=== PATIENT | male | born 1960 | race Caucasian/White ===

== ENCOUNTER 2023-09-19 22:52 | Emergency (ER) | payer MEDICARE, OTHER, SELFPAY ==
[2023-09-19 22:52] VITALS: BMI 25.0
[2023-09-19 22:54] VITALS: BP 118/69
--- NOTE | 2023-09-19 22:58 | ED.GENMED ---
History of Present Illness
<Zheng Salas Russell, DO - Last Filed: 09/20/23 05:17>
General
Chief Complaint: Abdominal Pain
Time Seen by Provider: 09/19/23 22:57
Travel History
Have you had any contact with someone who has COVID-19?: No
Do you have any symptoms of coronavirus? Fever > 100 degrees, chills, cough, shortness of breath, sore throat, loss of taste or smell, muscle aches, or headache?: No
History of Present Illness
History of Present Illness:
HPI: The patient presents with abdominal pain. He had ERCP yesterday and reports that the biliary stent was exchanged. 5 days ago it was noted that he had jaundice when he was at [facility] for an exchange of his drainage catheter (has chronic
intra-abdominal abscess). He had not had biliary stent exchanged in a long time. His Tmax was about 101 Fahrenheit. He has a general uncomfortable feeling and was discharged from [facility] yesterday and the pain has been worsening.
EXAM:
GENERAL: Appears uncomfortable
HEENT: Moist oral mucosa, scleral icterus
CARDIOVASCULAR: No murmurs, normal heart rate, regular rhythm, No chest wall tenderness
PULMONARY: No respiratory distress, breath sounds are clear and equal
ABDOMEN: Mild diffuse abdominal tenderness, surgical scar/wound noted in the right upper quadrant, drainage catheter draining purulent material noted which patient states is chronic currently has about 40 mL in the bag
NEUROLOGIC: Good strength all extremities, no coordination deficits
PSYCHIATRIC: Appropriate mental status, normal insight and judgement
EXTREMITIES: Nontender, no edema, moves all extremities equally
SKIN: Appears jaundiced
TIME OF INITIAL ENCOUNTER: 11:05 PM
NUMBER AND COMPLEXITY OF PROBLEMS ADDRESSED AT THE ENCOUNTER
� Chronic conditions affecting care: Metastatic colon cancer, surgical wound infection, PE
� Acute Exacerbation and/or Progression of Chronic Illness: This is an acute problem
� Differential Diagnosis includes: Post ERCP pancreatitis, CBD stone, worsening metastatic disease, viral hepatitis unlikely, ERCP complication
AMOUNT AND/OR COMPLEXITY OF DATA TO BE REVIEWED AND ANALYZED
� I performed an independent evaluation of and my interpretation is:
EKG:
CT: I personally viewed CT imaging�radiologist is concerned of the tip of the common bile duct stent that appears to perforate the anterior wall of the duodenum and terminate in the adjacent fat, large gas fluid collection noted
as well
X-rays:
Laboratory Studies: Alk phos is 732, white count 12, total bili 10.3, direct is 8.1, lipase is normal at 58
Other: Ultrasound imaging shows stent in the common bile duct now measuring 11 mm and on ultrasound 04/23/2020 it was 9 mm, cirrhotic liver with trace perihepatic ascites was noted, visualized portion of the pancreas was normal.
� Review of other/old records: I reviewed records, the patient was started on Eliquis for diagnosis of pulmonary embolism in February 2023�she was not hypoxic at that time. The patient had ERCP done in September 2020 for management of
CBD stone
� Clinical information was obtained by an independent historian: I spoke to the at bedside
� Prescriptions/Medications Considered but not given:
� Further testing considered but not performed:
RISK OF COMPLICATIONS AND/OR MORBIDITY OR MORTALITY OF PATIENT MANAGEMENT
� Social determinants of health affecting care: Lives at home, also has care at [facility]
� Discussion with other providers: I discussed case with Dr. Hawthorne at [facility] initially, I then ultimately spoke to Dr. Clay who accepts to his service at [facility] at around 3:30 AM. [facility] transfer center says that the bed
would likely not be available until late morning.
� Escalation of care including admission/observation vs risk of discharge considered: The patient appears uncomfortable and require something from for pain�will give Dilaudid. On reassessment at 1:30 AM, the patient reports some
improvement however the etiology of this somewhat unclear. We are trying to contact the doctors at [facility] above. CT imaging shows concern for perforation of the anterior wall of the duodenum from the CBD stent. The patient states that he missed
his dose of Augmentin�will give a dose of Unasyn. He was also concerned about not taking omeprazole�will give Protonix.
Past History
<Zheng Wells, DO - Last Filed: 09/20/23 05:17>
Past History
ED Past Medical History: Cancer (Colon cancer 2017)
ED Past Surgical History: Cholecystectomy, Orthopedic and Other (Sigmoid resection, port placement,liver resection)
Social History
Tobacco: Non-smoker
Alcohol: Occasional
Drug: None
Personal:
Living: with family
Employment: Employed
Family History
Family History: Other (Noncontributory)
Phy Exam
<Zheng Wells, DO - Last Filed: 09/20/23 05:17>
Physical Exam
Physical Exam:
See HPI
Course
<Zheng Wells, DO - Last Filed: 09/20/23 05:17>
Orders/Labs/Results
Orders:
Orders
09/19/23 22:59
0.9% Sodium Chloride 1000 ml [Nss] 1,000 ml IV BOLUS
09/19/23 23:10
HYDROmorphone [Dilaudid] 1 mg IV NOW STA
Ondansetron Injectable [Zofran] 4 mg IV NOW STA
09/19/23 23:22
Basic Metabolic Panel Urgent
Complete Blood Count/With Diff Urgent
LFT [[id number]] Urgent
Lipase Urgent
09/20/23 01:52
CT Abd/pelvis W Iv Cont Urgent
Comment:
Reason For Exam: abnormal LFTs, eval for biliary ductal dilatation
09/20/23 03:01
HYDROmorphone [Dilaudid] 1 mg IV NOW STA
09/20/23 04:05
Pantoprazole [Protonix IV] 40 mg IV NOW STA
09/20/23 04:11
Ampicillin/Sulbactam 3 G [Unasyn] 3 gm 0.9% Sodium Chloride 100 ml [Nss] 100 ml IV NOW
09/20/23 11:38
0.9% Sodium Chloride 1000 ml [Nss] 1,000 ml IV BOLUS
HYDROmorphone [Dilaudid] 1 mg IV NOW STA
09/20/23 11:45
Ampicillin/Sulbactam 3 G [Unasyn] 3 gm 0.9% Sodium Chloride 100 ml [Nss] 100 ml IV NOW
09/20/23 11:49
Ondansetron Injectable [Zofran] 4 mg .ROUTE .STK-MED ONE
09/20/23 11:50
Ondansetron Injectable [Zofran] 4 mg IV NOW STA
09/20/23 23:10
US Abdomen Complete/Upper Urgent
Reason For Exam: abd pain; jaundice; recent biliary stent exchange
Abnormal Lab Results
09/19/23
23:22
WBC 12.0 H 10^3/uL
(4.8-10.8)
RBC 3.37 L 10^6/uL
(4.70-6.10)
Hgb 8.2 L g/dL
(13.0-18.0)
Hct 25.1 L %
(39.0-52.0)
MCV 74.5 L fL
(80.0-94.0)
MCH 24.3 L pg
(27.0-31.0)
MCHC 32.7 L g/dL
(33.0-37.0)
RDW 17.3 H %
(11.5-14.5)
Abs Immat Gran (auto) 0.1 H 10^3/uL
(0-0.05)
Absolute Neuts (auto) 10.1 H 10^3/uL
(1.4-6.5)
Absolute Lymphs (auto) 0.7 L 10^3/uL
(1.2-3.4)
Absolute Monos (auto) 1.0 H 10^3/uL
(0.1-0.6)
Immature Gran % 0.6 H %
(0-0.5)
Neutrophils % 84.3 H %
(42.2-75.2)
Lymphocytes % 5.9 L %
(20.5-51.1)
Sodium 129 L mmol/L
(135-145)
Creatinine 0.6 L mg/dL
(0.7-1.3)
Glucose 108 H mg/dl
(70-99)
Total Bilirubin 10.3 H mg/dl
(0.2-1.3)
Direct Bilirubin 8.1 H mg/dl
(0.0-0.4)
ALT 93 H U/L
(0-50)
Alkaline Phosphatase 732 H U/L
(38-126)
Albumin 2.8 L g/dl
(3.5-5.0)
09/19/23 23:22
09/19/23 23:22
Vital Signs
Initial and Last Documented VS:
Initial Vital Signs
Temp Pulse Resp BP Pulse Ox
98.3 F 98 22 118/69 98
09/19/23 22:54 09/19/23 22:54 09/19/23 22:54 09/19/23 22:54 09/19/23 22:54
Last Documented Vital Signs
Temp Pulse Resp BP Pulse Ox
101.6 F H 90 16 126/77 98
09/20/23 10:11 09/20/23 11:53 09/20/23 10:11 09/20/23 11:53 09/20/23 10:11
Harveylt;Blade D. Goodroad, DO - Last Filed: 09/20/23 12:51>
Orders/Labs/Results
Orders:
Orders
09/19/23 22:59
0.9% Sodium Chloride 1000 ml [Nss] 1,000 ml IV BOLUS
09/19/23 23:10
HYDROmorphone [Dilaudid] 1 mg IV NOW STA
Ondansetron Injectable [Zofran] 4 mg IV NOW STA
09/19/23 23:22
Basic Metabolic Panel Urgent
Complete Blood Count/With Diff Urgent
LFT [[id number]] Urgent
Lipase Urgent
09/20/23 01:52
CT Abd/pelvis W Iv Cont Urgent
Comment:
Reason For Exam: abnormal LFTs, eval for biliary ductal dilatation
09/20/23 03:01
HYDROmorphone [Dilaudid] 1 mg IV NOW STA
09/20/23 04:05
Pantoprazole [Protonix IV] 40 mg IV NOW STA
09/20/23 04:11
Ampicillin/Sulbactam 3 G [Unasyn] 3 gm 0.9% Sodium Chloride 100 ml [Nss] 100 ml IV NOW
09/20/23 11:38
0.9% Sodium Chloride 1000 ml [Nss] 1,000 ml IV BOLUS
HYDROmorphone [Dilaudid] 1 mg IV NOW STA
09/20/23 11:45
Ampicillin/Sulbactam 3 G [Unasyn] 3 gm 0.9% Sodium Chloride 100 ml [Nss] 100 ml IV NOW
09/20/23 11:49
Ondansetron Injectable [Zofran] 4 mg .ROUTE .STK-MED ONE
09/20/23 11:50
Ondansetron Injectable [Zofran] 4 mg IV NOW STA
09/20/23 23:10
US Abdomen Complete/Upper Urgent
Reason For Exam: abd pain; jaundice; recent biliary stent exchange
Abnormal Lab Results
09/19/23
23:22
WBC 12.0 H 10^3/uL
(4.8-10.8)
RBC 3.37 L 10^6/uL
(4.70-6.10)
Hgb 8.2 L g/dL
(13.0-18.0)
Hct 25.1 L %
(39.0-52.0)
MCV 74.5 L fL
(80.0-94.0)
MCH 24.3 L pg
(27.0-31.0)
MCHC 32.7 L g/dL
(33.0-37.0)
RDW 17.3 H %
(11.5-14.5)
Abs Immat Gran (auto) 0.1 H 10^3/uL
(0-0.05)
Absolute Neuts (auto) 10.1 H 10^3/uL
(1.4-6.5)
Absolute Lymphs (auto) 0.7 L 10^3/uL
(1.2-3.4)
Absolute Monos (auto) 1.0 H 10^3/uL
(0.1-0.6)
Immature Gran % 0.6 H %
(0-0.5)
Neutrophils % 84.3 H %
(42.2-75.2)
Lymphocytes % 5.9 L %
(20.5-51.1)
Sodium 129 L mmol/L
(135-145)
Creatinine 0.6 L mg/dL
(0.7-1.3)
Glucose 108 H mg/dl
(70-99)
Total Bilirubin 10.3 H mg/dl
(0.2-1.3)
Direct Bilirubin 8.1 H mg/dl
(0.0-0.4)
ALT 93 H U/L
(0-50)
Alkaline Phosphatase 732 H U/L
(38-126)
Albumin 2.8 L g/dl
(3.5-5.0)
09/19/23 23:22
09/19/23 23:22
Vital Signs
Initial and Last Documented VS:
Initial Vital Signs
Temp Pulse Resp BP Pulse Ox
98.3 F 98 22 118/69 98
09/19/23 22:54 09/19/23 22:54 09/19/23 22:54 09/19/23 22:54 09/19/23 22:54
Last Documented Vital Signs
Temp Pulse Resp BP Pulse Ox
101.6 F H 90 16 126/77 98
09/20/23 10:11 09/20/23 11:53 09/20/23 10:11 09/20/23 11:53 09/20/23 10:11
<Zheng Wells, DO - Last Filed: 09/20/23 05:17>
*Critical Care Note
Total Time (30-74mins, 75-104mins- exclusive of procedures): Not Applicable
<Blade Turpin, DO - Last Filed: 09/20/23 12:51>
Update Note
Update Note:
Call placed to [facility], and discussed with on-call surgeon. They continue to await bed. Attempted admission to to hospitalist with general surgery consult, general surgery, Dr. Murguia declines admission, not comfortable admitting patient here.
Recommends patient stay in ED until transfer available. Unclear when bed will be available. D/w Dr. Perez, hospitalist, not comfortable admitting patient here.
Repeat dose of unasyn, IV fluids, dilaudid and zofran given.
ED Attending Note
<Zheng Wells, DO - Last Filed: 09/20/23 05:17>
-
Portions of this chart may have been created with voice recognition software.� Occasional wrong word or��sound alike� substitutions may have occurred due to the inherent limitations of voice recognition software.
Discharge Plan
Departure
Patient Disposition: Acute Care Hospital
Date of Disposition: 09/20/23
Time of Disposition: 03:59
Patient with high blood pressure during this ER visit?: Yes
Discharge Problem:
Jaundice
Prescriptions:
No Action
omeprazole 20 mg Tablet,Delayed Release (/Ec)
20 mg PO DAILY
amoxicillin-pot clavulanate 875-125 mg Tablet
1 tab PO BID
Patient Comments:
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
sennosides [senna] 8.6 mg Tablet
8.6 mg PO BID
Referrals:
Teresita Donohue PA-C [Family Provider] -
Hospital Transfer
Other hospital: [facility]
I certify that the patient requires transfer: Yes
Discussed case with accepting physician: Dr. Ramirez
Reason for transfer: continuity of care PCP
Interventions
Interventions:
*Risk Screen - Suicide Last Done: 09/19/23 23:37
*General Assessment Last Done: 09/19/23 23:37
*Neglect/Abuse Screening Last Done: 09/19/23 23:37
*ED COVID-19 Vaccine History Last Done: 09/19/23 23:37
WR-Tmqpcu-Tsisqxwrem Assessment Last Done: 09/19/23 23:37
Discharge Date and Time
Print Language: THAI
[2023-09-19 23:27] VITALS: BP 123/73
[2023-09-19 23:27] LABS: % Basophils 0.2 % (0-2); % Eosinophils 0.8 % (0-6); % Immature Granulocytes 0.6 % (0-0.5); % Lymphocytes 5.9 % (20.5-51.1); % Monocytes 8.2 % (1.7-9.3); % Neutrophils 84.3 % (42.2-75.2); Absolute Eosinophils 0.1 10^3/uL (0-0.7); Absolute Immature Granulocytes 0.1 10^3/uL (0-0.05); Absolute Lymphocytes 0.7 10^3/uL (1.2-3.4); Absolute Neutrophils 10.1 10^3/uL (1.4-6.5); Hematocrit 25.1 % (39.0-52.0); Hemoglobin 8.2 g/dL (13.0-18.0); Mean Corp Hgb Conc. 32.7 g/dL (33.0-37.0); Mean Corpuscular Hgb 24.3 pg (27.0-31.0); Mean Corpuscular Volume 74.5 fL (80.0-94.0); Nucleated Red Blood Cells % 0 % (-); Platelet Count 183 10^3/uL (130-400); Red Blood Cell Count 3.37 10^6/uL (4.70-6.10); Red Cell Dist. Width 17.3 % (11.5-14.5)
[2023-09-19] MEDS: ZOFRAN 4 MG IV (23:30)
[2023-09-19] MEDS: NSS 1000 IV (23:30)
[2023-09-19] MEDS: DILAUDID 1 MG IV (23:32)
[2023-09-19 23:46] LABS: ALT (SGPT) 93 U/L (0-50); AST (SGOT) 57 U/L (17-59); Albumin 2.8 g/dl (3.5-5.0); Alkaline Phosphatase 732 U/L (38-126); Blood Urea Nitrogen 11 mg/dl (9-20); Calcium 8.6 mg/dl (8.4-10.2); Carbon Dioxide 29 mmol/L (22-30); Chloride 99 mmol/L (98-107); Direct Bilirubin 8.1 mg/dl (0.0-0.4); Estimated Creatinine Clearance > 125 ml/min; Glucose 108 mg/dl (70-99); Lipase 58 U/L (23-300); Potassium 4.5 mmol/L (3.5-5.1); Sodium 129 mmol/L (135-145); Total Bilirubin 10.3 mg/dl (0.2-1.3); Total Protein 6.9 g/dl (6.3-8.2); eGFR > 60.00
[2023-09-20] VITALS (12 sets, daily range): BP systolic 109–133; BP diastolic 67–81
[2023-09-20] MEDS: DILAUDID 1 MG IV ×2 (03:08→11:44)
[2023-09-20] MEDS: PROTONIX IV 40 MG IV (04:30)
[2023-09-20] MEDS: UNASYN IV ×2 (04:52→12:00)
[2023-09-20] MEDS: NSS 1000 IV (11:48)
[2023-09-20] MEDS: ZOFRAN 4 MG IV (11:50)
--- NOTE | 2023-09-20 12:20 | CON.GS ---
Documented by User: MARGUERITE Lindo 09/20/23 13:24
Consultation
-
Date/Time Consultation Requested: 09/20/23 1130
Date/Time Consultation Performed: 09/19/23 1215
Requesting Provider: Papi
Performing Provider: Eduard Murguia
Reason for Consultation: duodenal perforation
Medical History
-
Chief Complaint: Abdominal pain
History of Present Illness:
Mr Moe is a 63 yo male with history of metastatic colon cancer with initial diagnosis in 2016 at which time he underwent a laparoscopic sigmoidectomy at with Dr. Hernandez with noted extension into subserosa and into extramural vein, 06/11 nodes
positive. He was followed with chemotherapy for 6 months with remission. Unfortunately, his cancer returned with metastatic liver disease noted in 2020 at which point he began following with Dr. Figueroa at [facility] with initial mass removal in 2020
followed by right lobe resection in 2021. He also underwent additional chemo and radiation at that time as well. He notes that he developed what was initially thought to be a liver abscess which did not resolve with prolonged courses of antibiotics.
Biopsy ultimately demonstrated metastatic disease with associated abscess. 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 In December of 2022, he reports a tumor debulking surgery at [facility] with placement of CBD
stent which was exchanged yesterday. 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 There is also an intrahepatic
biliary drain present with bilious outputs noted. Over the past weeks he has noted increasing jaundice and rising LFT's which prompted the exchange of his CBD stent yesterday. Since returning home from his stent exchange, he has had worsening upper
abdominal pain and nausea. He is also significantly jaundiced with bronchospastic cough. He is currently for transfer to [facility] and seen in evaluation while he awaits a bed.
Past Medical History
Past Medical History: Cancer (metastatic primary colon cancer s/p chemo 2017, 2020) and Other (Liver abscess since 2021 on chronic abx fistulizing into the right lower lobe with endobronchial valves, )
Past Surgical History: Bowel Resection (05/2016 lap sigmoidectomy for adenoCA with extension into subserosa and into extramural vein, 06/[address] Hernandez), Cholecystectomy (2019) and Other (Liver mass resection 2020 with second
surgery for right hepatic lobectomy in 2021, abscessed tumor debulking December 2022 with CBD stent placement, endobronchial valve with multiple exchanges last one on 09/15/23, intrahepatic biliary drain)
Social History
Tobacco: Former Smoker
Alcohol: Occasional (one tequila drink every friday)
Drug: None
Family History
Family History: Reviewed & Not Pertinent
Allergies / Home Medications
Allergy/AdvReac Type Severity Reaction Status Date / Time
levofloxacin [From Levaquin] Allergy Rash Verified 09/19/23 22:54
Tetanus Vaccines and Toxoid Allergy joint pain Verified 09/19/23 22:54
oxcilplation Allergy Anaphylaxis Uncoded 09/19/23 22:54
�Medication �Instructions �Recorded �Confirmed �Type
omeprazole 20 mg tablet,delayed 20 mg PO DAILY Gastrointestinal 01/06/23 09/20/23 History
release Issue
amoxicillin 875 mg-potassium 1 tab PO BID Infection 03/23/23 09/20/23 History
clavulanate 125 mg tablet
sennosides 8.6 mg tablet (senna) 8.6 mg PO BID 09/20/23 09/20/23 History
Review of Systems
-
History Source: Patient
All other systems: Negative unless noted
A 10 point review of systems was completed, and was negative except as per HPI.
Physical Exam
Vital Signs
Temp Pulse Resp BP Pulse Ox
101.6 F H 90 16 126/77 98
09/20/23 10:11 09/20/23 11:53 09/20/23 10:11 09/20/23 11:53 09/20/23 10:11
09/19/23 09/20/23 09/21/23
06:59 06:59 06:59
Actual Weight 76.7 kg
Body Mass Index (BMI) 25.0
Lab Results
09/19/23 23:22
09/19/23 23:22
WBC 12.0 10^3/uL (4.8-10.8) H 09/19/23 23:22
Hgb 8.2 g/dL (13.0-18.0) L 09/19/23 23:22
Hct 25.1 % (39.0-52.0) L 09/19/23 23:22
Plt Count 183 10^3/uL (130-400) 09/19/23 23:22
Abs Immat Gran (auto) 0.1 10^3/uL (0-0.05) H 09/19/23 23:22
Neutrophils % 84.3 % (42.2-75.2) H 09/19/23 23:22
Physical Exam
General: Fever and Chills; Negative Comfortable
HEENT: Normocephalic and Scleral Icterus; Negative Moist Mucous Membranes
Respiratory: Other (suppressed bronchospastic cough)
GI: Soft, Tender (epigastric area across right quadrant) and Other (biliary drain with bilious outputs)
Skin: Warm, Jaundice (severe) and Other (prior surgical scar with dermatitis, scabbing)
Neuro: Awake, Alert and AO x 3
Psych: Calm
Data Reviewed
-
CT Scan: Image Personally Visualized and interpreted, Report Reviewed by me, Discussed with Physician, Discussed with Nurse and Discussed with Patient
Labs: Labs Reviewed by me, Discussed with Physician, Discussed with Nurse and Discussed with Patient
Old Records: Reviewed
Assessment / Plan
-
Mr Moe is a 63 yo male with history of metastatic colon cancer with initial diagnosis in [address] Figueroa at [facility] with metastatic disease and associated abscess. He has been on residential antibiotics for about 2 years. Maintained
with hepatic biliary drain, endobronchial valve (fistula into lung present) exchanged Friday, and CBD stent which was exchanged yesterday. Over the past weeks he has noted increasing jaundice and rising LFT's which prompted the exchange of his CBD
stent yesterday. Reports last bilirubin level was 8, currently 10.3 with significant jaundice noted.
Since returning home from his stent exchange yesterday, he has had worsening upper abdominal pain and nausea with CT in the ED demonstrating duodenal perforation at the proximal end of the stent through the anterior duodenal wall and into the
peritoneal cavity. Hyponatremia and leukocytosis present with pain/nausea/and recurrent cough.
Patient needs advanced tertiary care that cannot be provided at this local [facility] including hepatobiliary specialist as well as advanced gastroenterology and pulmonary interventionalists. Confirmed with GI events traffic controller that we are unable to
provide the advanced endoscopic management he will likely need. Await transfer to [facility] where he receives the bulk of his care. Patient accepted by Dr. Clay at [facility] early this morning for transfer. Personally called the transfer center to assist in
facilitating patient transfer as has my attending and ER attending. Patient now febrile with concern for deteriorating condition. Will monitor closely and upgrade to ICU level of care as needed.
--Keep strict NPO
--IV abx while awaiting transfer
--IVF while NPO

Documented by User: Shahid Murguia MD 09/20/23 15:43
Medical History
-
History of Present Illness:
Mr Moe is a 63 yo male with history of metastatic colon cancer with initial diagnosis in 2016 at which time he underwent a laparoscopic sigmoidectomy at with Dr. Hernandez with noted extension into subserosa and into extramural vein, 06/11 nodes
positive. He was followed with chemotherapy for 6 months with remission. Unfortunately, his cancer returned with metastatic liver disease noted in 2020 at which point he began following with Dr. Figueroa at [facility] with initial mass removal in 2020
followed by right lobe resection in 2021. He also underwent additional chemo and radiation at that time as well. He notes that he developed what was initially thought to be a liver abscess which did not resolve with prolonged courses of antibiotics.
Biopsy ultimately demonstrated metastatic disease with associated abscess. 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 In December of 2022, he reports a tumor debulking surgery at [facility] with placement of CBD
stent which was exchanged yesterday. 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 He additionally has a
RUQ drain with liquid brown/green output. Over the past 1-2 weeks, he has noted increasing jaundice and rising LFT's which prompted the exchange of his CBD stent yesterday with the GI team at [facility]. Since returning home from his stent exchange, he has
had worsening diffuse abdominal pain and nausea. He is also significantly jaundiced with bronchospastic cough. He is currently for transfer to [facility] and seen in evaluation while he awaits a bed.
== END 2023-09-20 15:14 | disposition short-term general hospital (02) ==
LOC: EMR 22:52
PROVIDERS: EMERGENCY PHYSICIAN Emergency Medicine; FAMILY PHYSICIAN Physician Assistant; OTHER PHYSICIAN Surgery
DX: R17 Unspecified jaundice (principal); R03.0 Elevated blood-pressure reading, without diagnosis of hypertension; Z87.891 Personal history of nicotine dependence
CPT/HCPCS: 99285; 96365; 96366; 96375 ×3; 96361; 96376 ×2; 74177; 76700; 80048; 80076; 83690; 85025; Q9967

== ENCOUNTER 2023-12-12 07:55 | Inpatient (IN) | payer MEDICARE, OTHER, SELFPAY ==
[2023-12-10] VITALS (8 sets, daily range): BP systolic 101–134; BP diastolic 64–71; BMI 20.9
--- NOTE | 2023-12-10 12:43 | ED.GENMED ---
History of Present Illness
<Patricia Mcgarry PA-C - Last Filed: 12/10/23 17:31>
General
Chief Complaint: Musculo-Skeletal Complaint
Source: patient
Exam Limitations: none
Time Seen by Provider: 12/10/23 11:47
Nursing documentation reviewed up to this point in time: agreed with
History of Present Illness
History of Present Illness:
63 y/o M with ho metastatic colon CA
followed by [facility]
had resection years ago
had mets to liver a few years ago, has a biliary drain
but more recently last week dx with L humerus bone lesion a few days ago on xray because of some ongoing L shoulder pain
he had appt with dr. cheng from onc ortho today but he rolled over and felt a snap in his arm and he has severe pain
no numbness/tingling/weakness
no skin tenting
took dilaudid 4 mg this am at 8 am
Past History
<Patricia Mcgarry PA-C - Last Filed: 12/10/23 17:31>
Past History
ED Past Medical History: Cancer (Colon cancer 2017)
ED Past Surgical History: Cholecystectomy, Orthopedic and Other (Sigmoid resection, port placement,liver resection)
Social History
Tobacco: Non-smoker
Alcohol: Occasional
Drug: None
Personal:
Living: with family
Employment: Employed
Family History
Family History: Other (Noncontributory)
Review of Systems
<KEVIN Patricia Last Filed: 12/10/23 17:31>
Review of Systems
Allergies reviewed?: Yes
All Other Systems: Not applicable
Phy Exam
<KEVIN Patricia Last Filed: 12/10/23 17:31>
Physical Exam
Physical Exam:
GENERAL: Alert , in no apparent distress, pale
HEAD: NCAT
NECK: no midline tenderness, active ROM intact, no paraspinal muscle tenderness;
eye: scleral icterus
CARDIAC: Regular rate and rhythm, no edema
LUNGS: Clear breath sounds bilaterally, no acute respiratory distress, no wheezes/rales/rhonchi
A
NEUROLOGICAL: Alert and oriented, no focal neuro deficits, CN intact, 5/5 strength, sensation intact
SKIN: Warm and dry, pale
MUSCULOSKELETAL: Obvious deformity of the left upper extremity in the proximal third shaft of the humerus with displacement, no skin tenting, intact radial pulse, cap refill intact
PSYCH: Normal and appropriate interaction.
Course
<Patricia Mcgarry PA-C - Last Filed: 12/10/23 17:31>
Orders/Labs/Results
Orders:
Orders
12/10/23 12:12
Humerus, Left 2 Views [CR Humerus - Left Min 2 Views*] Urgent
Comment:
Reason For Exam: pain injury
12/10/23 12:36
HYDROmorphone [Dilaudid] 1 mg IV NOW STA
12/10/23 12:54
Complete Blood Count/With Diff Urgent
Comprehensive Metabolic Panel Urgent
PTT Urgent
Prothrombin Time Urgent
12/10/23 14:34
HYDROmorphone [Dilaudid] 1 mg IV NOW STA
12/10/23 15:23
* Blood Bank Products Urgent
's Orders: Karl Salgado DO
Blood Bank Products: *Packed RBC Leuko(PRBC's)
Quantity: 1
Transfuse Today: Yes
Reason: Anemia
12/10/23 15:48
LAWALL EQUIPMENT REQUEST Urgent
12/10/23 16:35
HYDROmorphone [Dilaudid] 1 mg IV NOW STA
Abnormal Lab Results
12/10/23
12:54
WBC 14.9 H 10^3/uL
(4.8-10.8)
RBC 3.07 L 10^6/uL
(4.70-6.10)
Hgb 7.2 L g/dL
(13.0-18.0)
Hct 22.5 L %
(39.0-52.0)
MCV 73.3 L fL
(80.0-94.0)
MCH 23.5 L pg
(27.0-31.0)
MCHC 32.0 L g/dL
(33.0-37.0)
RDW 14.8 H %
(11.5-14.5)
Abs Immat Gran (auto) 0.2 H 10^3/uL
(0-0.05)
Absolute Neuts (auto) 13.0 H 10^3/uL
(1.4-6.5)
Absolute Lymphs (auto) 0.8 L 10^3/uL
(1.2-3.4)
Absolute Monos (auto) 0.9 H 10^3/uL
(0.1-0.6)
Immature Gran % 1.0 H %
(0-0.5)
Neutrophils % 87.5 H %
(42.2-75.2)
Lymphocytes % 5.1 L %
(20.5-51.1)
PT 18.2 H Sec
(11.4-14.6)
APTT > 200 H* Sec
(23.4-35.0)
Sodium 126 L mmol/L
(135-145)
Chloride 96 L mmol/L
(98-107)
Creatinine 0.5 L mg/dL
(0.7-1.3)
Glucose 103 H mg/dl
(70-99)
Calcium 8.1 L mg/dl
(8.4-10.2)
Total Bilirubin 1.7 H mg/dl
(0.2-1.3)
Alkaline Phosphatase 729 H U/L
(38-126)
Albumin 2.6 L g/dl
(3.5-5.0)
12/10/23 12:54
12/10/23 12:54
Vital Signs
Initial and Last Documented VS:
Initial Vital Signs
Pulse Resp BP Pulse Ox
87 18 104/69 97
12/10/23 11:17 12/10/23 11:17 12/10/23 11:17 12/10/23 11:17
Last Documented Vital Signs
Pulse Resp BP Pulse Ox
87 18 134/71 97
12/10/23 11:17 12/10/23 11:17 12/10/23 16:56 12/10/23 11:17
<Karl Salgado DO - Last Filed: 12/10/23 15:24>
Orders/Labs/Results
Orders:
Orders
12/10/23 12:12
Humerus, Left 2 Views [CR Humerus - Left Min 2 Views*] Urgent
Comment:
Reason For Exam: pain injury
12/10/23 12:36
HYDROmorphone [Dilaudid] 1 mg IV NOW STA
12/10/23 12:54
Complete Blood Count/With Diff Urgent
Comprehensive Metabolic Panel Urgent
PTT Urgent
Prothrombin Time Urgent
12/10/23 14:34
HYDROmorphone [Dilaudid] 1 mg IV NOW STA
12/10/23 15:23
* Blood Bank Products Urgent
's Orders: Karl Salgado DO
Blood Bank Products: *Packed RBC Leuko(PRBC's)
Quantity: 1
Transfuse Today: Yes
Reason: Anemia
12/10/23 15:48
LAWALL EQUIPMENT REQUEST Urgent
12/10/23 16:35
HYDROmorphone [Dilaudid] 1 mg IV NOW STA
Abnormal Lab Results
12/10/23
12:54
WBC 14.9 H 10^3/uL
(4.8-10.8)
RBC 3.07 L 10^6/uL
(4.70-6.10)
Hgb 7.2 L g/dL
(13.0-18.0)
Hct 22.5 L %
(39.0-52.0)
MCV 73.3 L fL
(80.0-94.0)
MCH 23.5 L pg
(27.0-31.0)
MCHC 32.0 L g/dL
(33.0-37.0)
RDW 14.8 H %
(11.5-14.5)
Abs Immat Gran (auto) 0.2 H 10^3/uL
(0-0.05)
Absolute Neuts (auto) 13.0 H 10^3/uL
(1.4-6.5)
Absolute Lymphs (auto) 0.8 L 10^3/uL
(1.2-3.4)
Absolute Monos (auto) 0.9 H 10^3/uL
(0.1-0.6)
Immature Gran % 1.0 H %
(0-0.5)
Neutrophils % 87.5 H %
(42.2-75.2)
Lymphocytes % 5.1 L %
(20.5-51.1)
PT 18.2 H Sec
(11.4-14.6)
APTT > 200 H* Sec
(23.4-35.0)
Sodium 126 L mmol/L
(135-145)
Chloride 96 L mmol/L
(98-107)
Creatinine 0.5 L mg/dL
(0.7-1.3)
Glucose 103 H mg/dl
(70-99)
Calcium 8.1 L mg/dl
(8.4-10.2)
Total Bilirubin 1.7 H mg/dl
(0.2-1.3)
Alkaline Phosphatase 729 H U/L
(38-126)
Albumin 2.6 L g/dl
(3.5-5.0)
12/10/23 12:54
12/10/23 12:54
Vital Signs
Initial and Last Documented VS:
Initial Vital Signs
Pulse Resp BP Pulse Ox
87 18 104/69 97
12/10/23 11:17 12/10/23 11:17 12/10/23 11:17 12/10/23 11:17
Last Documented Vital Signs
Pulse Resp BP Pulse Ox
87 18 134/71 97
12/10/23 11:17 12/10/23 11:17 12/10/23 16:56 12/10/23 11:17
<Patricia Mcgarry PA-C - Last Filed: 12/10/23 17:31>
MDM/Problems Addressed
Differential Diagnosis Includes:
pathologic fracture
MDM/Problems Addressed:
63 y/o M with h/o metastatic colon ca
recent dx of a new bony lesion in his left upper arm on xray a few days ago
rolled over in bed overnight and felt a snap with severe pain
tried dilaudid without relief
pt cannot move the arm
he has an obvious deformity
intact nv state
xray indep reviewed
confirms a fracture deformity through the tumor mid humerus
i reached out to onc ortho dr. cheng at [facility] who has not formerly seen this patient yet but recommended based on photos i sent her that we apply a sermiento brace to the arm and he can follow up next week
there would be no indcitation to transfer
i spoke with laura avilez who will consult and see the patient tomorrow for sermiento brace placement
in the meantim, pt's hg is slightly worse than baseline of 8 and he is fatigued and dry, could use 1 unit of blodo which he consented to
he is concerned about pain control overnight
reasonable to admit for IV pain control and blood and likely dishcarge tomorrow
I DID PLACE A COAPT SPLINT ON THE PATIENT'S LEFT UPPER EXTREMITY FOR STABILITZATION UNTIL HE CAN RECEIVE THE BRACE TOMROROW FROM [facility].
<Patricia Mcgarry PA-C - Last Filed: 12/10/23 17:31>
*Critical Care Note
Total Time (30-74mins, 75-104mins- exclusive of procedures): Not Applicable
ED Attending Note
<Patricia Mcgarry PA-C - Last Filed: 12/10/23 17:31>
-
Portions of this chart may have been created with voice recognition software.� Occasional wrong word or��sound alike� substitutions may have occurred due to the inherent limitations of voice recognition software.
<Karl Salgado DO - Last Filed: 12/10/23 15:24>
ED Attending Note
Patient seen and examined by attending physician: Yes
I performed the substantive portion of visit, reviewed & personally made and approve the management plan that is documented in note by myself or NETO.: Yes
ED Attending Note:
I have seen and evaluated the patient with a cqin-se-lury encounter. I have spoken to the advance practicer provider and involved in the medical history, the physical exam, medical decision making.
Evaluation and management service: agree unless noted differently below.
Results interpretation: agree unless noted differently below.
Focused HPI: 63-year-old male presenting with left arm pain. There is clearly deformity. He rolled over bed and felt a snap. Patient has a history of metastatic disease to his bone. He was aware of the metastatic disease to his left humerus and
he was supposed to follow-up with [facility] orthopedic oncologist today
Physical exam: Frail and cachectic. Deformity noted to left mid arm. Pulses intact
Medical Decision Making: X-ray consistent with pathologic fracture to mid humerus. Will discuss case with [facility] orthopedic oncologist.
Update 3:23 PM [facility] orthopedic oncologist aware and suggested splint and they will follow-up next week. has list of his recent blood work. Anemia has worsened mildly. Hyponatremia somewhat unchanged. Will consent for 1 unit of blood
Discharge Plan
Departure
Patient Disposition: Admit
Date of Disposition: 12/10/23
Time of Disposition: 15:32
Admit to: Med/Surg
Presentation/result/management discussed w/ accepting MD/DO: Hospitalist
Condition: Fair
Covid-19: Not Applicable
Discharge Problem:
Symptomatic anemia, Pathological fracture of left humerus
Prescriptions:
No Action
omeprazole 20 mg Tablet,Delayed Release (Dr/Ec)
20 mg PO DAILY
amoxicillin-pot clavulanate 875-125 mg Tablet
1 tab PO BID
sennosides [senna] 8.6 mg Tablet
8.6 mg PO HS
hydromorphone 4 mg Tablet
4 mg PO Q4HPRN PRN (Reason: severe pain)
fentanyl 12 mcg/hr Patch 72 Hour
1 patch TRANSDERMAL Q72H
diclofenac sodium 1 % Gel
1 ea TOPICAL BIDPRN PRN (Reason: left arm)
Referrals:
Teresita Donohue PA-C [Family Provider] -
Interventions
Interventions:
*Risk Screen - Suicide Last Done: 12/10/23 12:29
*General Assessment Last Done: 12/10/23 12:29
*Neglect/Abuse Screening Last Done: 12/10/23 12:29
ED- Fall Risk Assessment Last Done: 12/10/23 16:57
*ED COVID-19 Vaccine History Last Done: 12/10/23 12:29
ED-Musculoskeletal Assessment Last Done: 12/10/23 12:29
Discharge Date and Time
Print Language: BELARUSIAN
[2023-12-10] MEDS: DILAUDID 1 MG IV ×4 (13:01→23:37)
[2023-12-10 13:12] LABS: % Basophils 0.2 % (0-2); % Eosinophils 0.3 % (0-6); % Lymphocytes 5.1 % (20.5-51.1); % Monocytes 5.9 % (1.7-9.3); % Neutrophils 87.5 % (42.2-75.2); Absolute Eosinophils 0.1 10^3/uL (0-0.7); Absolute Immature Granulocytes 0.2 10^3/uL (0-0.05); Absolute Lymphocytes 0.8 10^3/uL (1.2-3.4); Absolute Monocytes 0.9 10^3/uL (0.1-0.6); Hematocrit 22.5 % (39.0-52.0); Hemoglobin 7.2 g/dL (13.0-18.0); Mean Corpuscular Hgb 23.5 pg (27.0-31.0); Mean Corpuscular Volume 73.3 fL (80.0-94.0); Mean Platelet Volume 9.1 fL (7.4-10.4); Nucleated Red Blood Cells % 0 % (-); Platelet Count 250 10^3/uL (130-400); Red Blood Cell Count 3.07 10^6/uL (4.70-6.10); Red Cell Dist. Width 14.8 % (11.5-14.5); White Blood Cell Count 14.9 10^3/uL (4.8-10.8)
[2023-12-10 13:15] LABS: PT 18.2 Sec (11.4-14.6)
[2023-12-10 13:20] LABS: ALT (SGPT) 17 U/L (0-50); AST (SGOT) 34 U/L (17-59); Albumin 2.6 g/dl (3.5-5.0); Alkaline Phosphatase 729 U/L (38-126); Blood Urea Nitrogen 11 mg/dl (9-20); Calcium 8.1 mg/dl (8.4-10.2); Carbon Dioxide 25 mmol/L (22-30); Chloride 96 mmol/L (98-107); Glucose 103 mg/dl (70-99); Potassium 3.9 mmol/L (3.5-5.1); Sodium 126 mmol/L (135-145); Total Bilirubin 1.7 mg/dl (0.2-1.3); Total Protein 6.8 g/dl (6.3-8.2); eGFR > 60.00
[2023-12-10 14:28] LABS: APTT > 200 Sec (23.4-35.0)
--- NOTE | 2023-12-10 17:34 | HPS.HSE ---
Addendum entered and electronically signed by Marina Butts MD 12/10/23 18:42:
I saw and examined the patient.
The PATIENT SERVICE TECHNICIAN PST or PA's note was reviewed and I agree with the note.
Comment:
Unfortunate 63-year-old gentleman who has been battling colon cancer for the past 8 years. He has had colectomy done and also tumor resection in the liver. His last surgery was in 2022 where he had an abscess and drain was placed in the
abscess-which eventually developed a fistula because of flushing. He also has a biliary drain. Patient has not been on any treatment since November 2022. He follows with [facility] Dr. Servin. Patient was found to have a left humerus lesion and the
plan was to follow-up with Ortho oncology at [facility] today. 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
On examination patient is awake and alert
Pain is slightly better
Cardiovascular system S1-S2 appreciated
Chest clear to auscultation
Abdomen with a scar on the right side he has a drain in on the right side and also a biliary drain in the mid abdomen area.
Extremities no edema
Left upper extremity has splint and a sling
Neuroexam is otherwise nonfocal
#Pathological fracture of the left humerus shaft with angulation secondary to minor trauma
Closed fracture per discussion with ER
ER contacted patient's [facility] oncology orthopedics Dr. Savannah Pillai
Recommendation is to do a brace and discharge the patient with pain control
She will see patient as outpatient on Friday.
# Leukocytosis likely stress reaction or from malignancy
# Anemia likely secondary to malignancy. No active bleeding
Some bleeding expected from long bone fracture
1 unit of packed red blood cells ordered in the ER
Recheck hemoglobin
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
Check osmolality studies and also urine sodium
May need Samsca fluid restriction as ordered
# Chronic pain opiate dependent
Continue fentanyl and continue Dilaudid and titrate as needed
# Metastatic colon cancer stage IV followed at [facility] by Dr. Servin
History of sigmoidectomy in 2018 and adjuvant Chemo
History of right metastasectomy for liver lesion 2020 at [facility]
Right hepatectomy in 2021 with adjuvant chemotherapy
Debulking surgery with internal biliary drain placement December 2022
Patient has not been on any treatment since December 2022
# Chronic right upper quadrant abscess - right upper quadrant drain
Continue chronic antibiotics
History of endobronchial valve with upsizing
# History pulmonary embolism
# GERD-continue PPI
# Hypoalbuminemia
# Right adrenal metastasis
# Ex Smoker
# DVT prophylaxis-SCDs
# CODE STATUS discussed with the patient and at bedside patient is clear that he wants to be a DNR has he stated that he has been battling this for past 8 years .
Original Note:
Family Physician
-
Family Physician: Teresita Donohue
Chief Complaint
-
Left Arm Pain
History of Present Illness
Patient is a 63 y/o male with a PMH of metastatic colon cancer followed by [facility] who reports to the ED for left arm pain. He has a complicated history of recurrent metastatic colon cancer with a sigmoidectomy in 2018, liver resection in 2020, and
right hepatectomy in 2021 with a biliary drain placement in 12/2022. 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 He has an external drain to the abscess and is on
Augmentin bid. He was recently diagnosed with a left humeral bone lesion after persistent left shoulder pain. Patient had a scheduled visit with Dr. Pillai from orthopedic oncology today. However, this morning around 2am he rolled on the cough to get
up and hear a 'pop.' He states that he forgot what side he was rolling on. He admits to severe sharp, shooting 10/10 pain. He took Dilaudid 4 mg once at 8am with slight pain relief. He admits to tingling and weakness in the left arm. Work-up in ED
revealed a pathologic left humerus fracture.
Medical History
Past Medical History
Past Medical History: Reports Other
Additional Past Medical History:
Recurrent Metastatic Colon Cancer
Chronic Right Upper Quadrant Abscess
Lung Fistula
Past Surgical History: Reports Other
Additional Past Surgical History:
Sigmoidectomy 2018
Liver Resection 2020
Right Hepatectomy 2021
Intrahepatic Biliary Drain Dec 2022
Endobronchial Valve
Social History
Tobacco: Former Smoker
Alcohol: Occasional
Family History
Family History: Not pertinent
Allergies / Home Medications
Allergies reflects when Allergies were last updated in [facility].
Home Medications with original date entered in [facility]
Allergy/Medication List:
Allergies
Allergy/AdvReac Type Severity Reaction Status Date / Time
levofloxacin [From Levaquin] Allergy Rash Verified 12/10/23 11:19
Tetanus Vaccines and Toxoid Allergy joint pain Verified 12/10/23 11:19
oxcilplation Allergy Anaphylaxis Uncoded 12/10/23 11:19
Home Medications
omeprazole 20 mg tablet,delayed release 20 mg PO DAILY Gastrointestinal Issue 01/06/23
amoxicillin 875 mg-potassium clavulanate 125 mg tablet 1 tab PO BID Infection 03/23/23
sennosides 8.6 mg tablet (senna) 8.6 mg PO HS 09/20/23
diclofenac sodium 1 % topical gel 1 ea topical BIDPRN PRN left arm 12/10/23
fentanyl 12 mcg/hr transdermal patch 1 patch transdermal Q72H 12/10/23
hydromorphone 4 mg tablet 4 mg PO Q4HPRN PRN severe pain 12/10/23
Review of Systems
-
A 12 point ROS was completed and negative except as noted: Yes
Constitutional: Denies Fever or Chills
Respiratory: Denies Cough or Trouble Breathing
Cardiac: Denies Chest Pain or Palpitations
Abdomen/GI: Reports Constipated
Physical Exam
Vital Signs
Vital Signs
Pulse Resp BP Pulse Ox
87 18 134/71 97
12/10/23 11:17 12/10/23 11:17 12/10/23 16:56 12/10/23 11:17
Physical Exam
General: Comfortable and Conversant
HEENT: Anicteric and Moist mucous membranes
Respiratory: Clear and Non Labored Respirations
Cardiac: S1/S2 and Regular Rhythm
GI: Soft and Other (Abscess Drain; Biliary Drain)
Musculoskeletal: No Clubbing, No Cyanosis and Other (LUE Extremity in splint and sling)
Skin: Warm and Dry
Neuro: Awake, Alert, Oriented and Nonfocal/grossly intact
Psych: Calm
Laboratory Results
-
12/10/23 12:54
12/10/23 12:54
Laboratory Results
PT 18.2 Sec (11.4-14.6) H 12/10/23 12:54
INR 1.50 12/10/23 12:54
APTT > 200 Sec (23.4-35.0) H* 12/10/23 12:54
Total Bilirubin 1.7 mg/dl (0.2-1.3) H 12/10/23 12:54
AST 34 U/L (17-59) 12/10/23 12:54
ALT 17 U/L (0-50) 12/10/23 12:54
Alkaline Phosphatase 729 U/L (38-126) H 12/10/23 12:54
Data Reviewed
-
Diagnostic Radiology: Report Reviewed by me
Lab Data: Labs Reviewed by me
Impression/Plan
-
Pathologic Left Humerus Fracture
-Non-Weight Bearing Status
-[place] to place brace tomorrow
-Pain control
-Follow-up with Dr. Griselda Pillai at [facility] next week - Office # [phone]
Leukocytosis, likely stress reaction
-Recheck in AM
Anemia, likely chronic
-1 unit PRBCs ordered by ED
-Recheck Hgb in AM
Hyponatremia, likely SIADH
-Fluid restriction
-Check urine sodium, urine osmo and serum osmo
-Recheck in AM
Chronic Pain with Opioid Dependence
-Continue Fentanyl Patch and Dilaudid
Recurrent Metastatic Colon Cancer
-Patient follows at [facility]
Chronic RUQ Abscess
-Continue Augmentin
DVT proph: SCDs
Code Status: DNR
[2023-12-10 19:19] LABS: Osmolality Serum 270 mOsm/kg (275-300)
[2023-12-10 19:51] LABS: Cortisol, Random 16.3 ug/dl; TSH 5.95 uIU/ml (0.47-4.68)
[2023-12-10] MEDS: AUGMENTIN 875 MG/125 MG 1 TABLET PO (20:01)
[2023-12-10] MEDS: DILAUDID 4 MG PO (20:01)
[2023-12-10] MEDS: DURAGESIC 25 MCG/HR PATCH 1 PATCH TRANSDERM (21:47)
--- NOTE | 2023-12-10 21:56 | PTCARENOTE ---
Patient arrived to unit around 19:20 via stretcher with diagnosis of humerus fx. Patient arm in sling and karuna wrapped upon arrival. Patient AAOx3. Flat affect. Oriented to unit. Call hays within reach. Pain medications given based on level of pain.
1 UNIT PRBC transfusing at current time as ordered. No adverse reaction noted.
--- NOTE | 2023-12-10 22:15 | PTCARENOTE ---
Patient came in from home with Two 12 MCG Fentanyl patches on left hip. Order is to remove patches and waste and apply Fentanyl 25 mcg patch. Pharmacy notified due to there only being an option to waste One 12 mcg patch or One 25 mcg patch in Pyxis.
RN spoke with Micki from pharmacy who came up to look at Pyxis options. Per Micki from pharmacy, ok to waste in the 12 mcg patch option but put in actual MCG wasted which was 19 mcg. Micki from pharmacy aware that 114 hours came up as wasted hours
when doing so.
[2023-12-11 04:55] LABS: Hematocrit 24.2 % (39.0-52.0); Hemoglobin 8.1 g/dL (13.0-18.0); Mean Corp Hgb Conc. 33.5 g/dL (33.0-37.0); Mean Corpuscular Hgb 24.8 pg (27.0-31.0); Mean Platelet Volume 8.7 fL (7.4-10.4); Platelet Count 247 10^3/uL (130-400); Red Blood Cell Count 3.27 10^6/uL (4.70-6.10); White Blood Cell Count 14.4 10^3/uL (4.8-10.8)
[2023-12-11 05:24] LABS: ALT (SGPT) 15 U/L (0-50); AST (SGOT) 31 U/L (17-59); Albumin 2.4 g/dl (3.5-5.0); Alkaline Phosphatase 620 U/L (38-126); Blood Urea Nitrogen 11 mg/dl (9-20); Calcium 7.9 mg/dl (8.4-10.2); Carbon Dioxide 26 mmol/L (22-30); Chloride 99 mmol/L (98-107); Estimated Creatinine Clearance 117 ml/min; Glucose 103 mg/dl (70-99); Magnesium 1.9 mg/dl (1.6-2.3); Potassium 4.3 mmol/L (3.5-5.1); Sodium 128 mmol/L (135-145); Total Bilirubin 1.9 mg/dl (0.2-1.3); Total Protein 6.4 g/dl (6.3-8.2); eGFR > 60.00
[2023-12-11 07:00] VITALS: BP 106/72
[2023-12-11] MEDS: PROTONIX 40 MG PO (08:17)
[2023-12-11] MEDS: COLACE 100 MG PO (08:17)
[2023-12-11] MEDS: AUGMENTIN 875 MG/125 MG 1 TABLET PO ×2 (08:17→19:40)
[2023-12-11] MEDS: SENOKOT PO ×4 (08:18→19:48)
[2023-12-11] MEDS: MIRALAX PO ×2 (08:18→10:17)
--- NOTE | 2023-12-11 08:47 | W.PN.HOSP.TC ---
Addendum entered and electronically signed by Marina Butts MD 12/12/23 15:09:
.
Addendum entered and electronically signed by Marina Butts MD 12/11/23 16:08:
I personally performed a history and physical exam of the patient and discussed management with the resident. I reviewed the resident's note and agree with the documented findings and plan of care HPI/CC change in documentation
Patient states that he feels better
He has shoulder immobilizer in
Cardiovascular system as well as appreciated
Just clear to auscultation
Abdomen biliary drain in
Soft
No pedal edema
#Pathological fracture of the left humerus shaft with angulation secondary to minor trauma
Closed fracture per discussion with ER
ER contacted patient's [place] [facility] orthopedics Dr. Savannah Pillai
Recommendation is to do a brace and discharge the patient with pain control
She will see patient as outpatient on Friday.
I spoke to Dr. Griselda Pillai-discussed about brace
Their office called and schedule an appointment for the patient around 1:45 PM on Friday
I discussed x-ray with orthopedics on-call. Angulation is acceptable.
X-ray after the brace looks better
# Leukocytosis likely stress reaction or from malignancy
# Anemia likely secondary to malignancy. No active bleeding
Some bleeding expected from long bone fracture
1 unit of packed red blood cells ordered in the ER
Hemoglobin better
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
Improving fluid restriction
Fluid restriction at home moving forward
Patient was given a prescription for BMP as outpatient
# Chronic pain opiate dependent
Continue fentanyl and continue Dilaudid 4 mg
# Metastatic colon cancer stage IV followed at [facility] by Dr. Servin
History of sigmoidectomy in 2018 and adjuvant Chemo
History of right metastasectomy for liver lesion 2020 at [facility]
Right hepatectomy in 2021 with adjuvant chemotherapy
Debulking surgery with internal biliary drain placement December 2022
Patient has not been on any treatment since December 2022
# Chronic right upper quadrant abscess - right upper quadrant drain
Continue chronic antibiotics
History of endobronchial valve with upsizing
# History pulmonary embolism
# GERD-continue PPI
# Hypoalbuminemia
# Right adrenal metastasis
# Ex Smoker
# DVT prophylaxis-SCDs
# CODE STATUS
Patient feels his pain is more controlled with IV Dilaudid therefore wants to stay for 1 more night
D/W
D/W
D/W RN at bed side
Original Note:
Today's Communication/Plan
-
Continue conversation with orthopedics, continue pain management
Assessment / Plan
Assessment / Plan
Impression:
63-year-old M who has been battling colon cancer for the past 8 years. He has had colectomy done and also tumor resection in the liver. His last surgery was in 2022 where he had an abscess and drain was placed in the abscess-which eventually
developed a fistula because of flushing. He also has a biliary drain. Patient has not been on any treatment since November 2022. He follows with [place] Dr. Servin. Patient was found to have a left humerus lesion and the plan was to follow-up with
Ortho oncology at [place]. 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
Plan:
#Pathological fracture of the left humerus shaft with angulation secondary to minor trauma
-Closed fracture per discussion with ER
-ER contacted patient's [place] oncology orthopedics Dr. Savannah Pillai
-Orthopedic oncology recommendation is to do a brace and discharge the patient with pain control
-Dr. Pillai will see patient as outpatient on Friday.
# Leukocytosis
-Likely stress reaction or from malignancy
# Anemia likely secondary to malignancy.
-No active bleeding
-Hemoglobin on admission 7.2
-Status post 1 unit of packed red blood cells ordered in the ER
-8.1 this a.m.
-Daily CBCs
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
-Sodium admission 126
-128 today, improving
-Check osmolality studies and also urine sodium
# Chronic pain opiate dependent
-Continue fentanyl and continue Dilaudid and titrate as needed
# Metastatic colon cancer stage IV followed at [place] by Dr. Servin
-History of sigmoidectomy in 2017 and adjuvant Chemo
-History of right metastasectomy for liver lesion 2020 at [facility]
-Right hepatectomy in 2021 with adjuvant chemotherapy
-Debulking surgery with internal biliary drain placement December 2022
-Patient has not been on any treatment since December 2022
# Chronic right upper quadrant abscess - right upper quadrant drain
-Continue chronic antibiotics
-History of endobronchial valve with upsizing
# History pulmonary embolism
# GERD-continue PPI
# Hypoalbuminemia
# Right adrenal metastasis
# Ex Smoker
Diet: Regular
DVT prophylaxis-SCDs
DNR/DNI
Anticipated Discharge: > 48 hours
Subjective/Interval History
-
Date of Service: December 11, 2023
No acute events overnight
Patient reports nausea
Objective Data
-
Labs:
Laboratory Results
12/11/23 12/11/23
04:44 08:46
WBC 14.4 H
Hgb 8.1 L
Hct 24.2 L
Plt Count 247
PT Pending
INR Pending
APTT Pending
Sodium 128 L
Potassium 4.3
Chloride 99
Carbon Dioxide 26
BUN 11
Creatinine 0.4 L
Glucose 103 H
Calcium 7.9 L
Total Bilirubin 1.9 H
AST 31
ALT 15
Alkaline Phosphatase 620 H
Vital Signs:
Vital Signs
Temp Pulse Resp BP Pulse Ox
97.6 F 91 16 106/72 94
12/11/23 07:00 12/11/23 07:00 12/11/23 07:00 12/11/23 07:00 12/11/23 07:00
I&O
12/10/23 12/11/23 12/12/23
06:59 06:59 06:59
Intake Total 250 / 250 730 / 730
Output Total 50 / 50
Balance 250 / 250 680 / 680
Review of Systems
-
History Source: Patient
Respiratory: Reports No Symptoms
Cardiac: Reports No Symptoms
Abdomen/GI: Reports No Symptoms
Musculoskeletal: Reports Other (Pain at fracture site, not at rest)
Data Reviewed
-
Diagnostic Radiology: Image personally visualized and interpreted, Report Reviewed by me and Discussed with Physician
Labs: Labs Reviewed by me and Discussed with Physician
[2023-12-11 09:32] LABS: INR 1.31; PT 16.4 Sec (11.4-14.6)
[2023-12-11 09:34] LABS: APTT 74.6 Sec (23.4-35.0)
[2023-12-11] MEDS: DILAUDID 1 MG IV ×3 (11:53→23:37)
--- NOTE | 2023-12-11 13:36 | CM ---
manager technical training reviewed patient's chart and met with patient and patient lives in a 2 story home, with spouse, patient is independent with adl's and ambulation, patient with Humerus fx however patient states he is able to ambulate to bathroom and
feels he is at baseline.
Pharmacy: [facility]
PCP: Teresita Donohue
Plan; Home no needs.
--- NOTE | 2023-12-11 15:02 | W.PN.UPDATE ---
Update Note
Progress Note Update
Did discuss care with the primary team and radiographs reviewed.
Radiographs obtained show pathologic diaphyseal left humeral shaft fracture with approximately 23 degrees varus angulation with minimal shortening which is within acceptable parameters for non operative care.
Patient does have outpatient follow up scheduled with Ortho onc at [place] for Friday.
Would agree with recommendation of transitioning to tavares style fracture brace, pain control and discharge with close outpatient follow up at [place] to discuss definitive treatment, surgical vs non surgical treatment.
Please reach out with any questions or concerns.
[2023-12-11 15:41] VITALS: BP 121/66
[2023-12-11 15:50] LABS: Osmolality Urine 572 mOsm/kg (300-900)
[2023-12-11 16:04] LABS: Urine Sodium 25 mmol/L (30-90)
[2023-12-11] MEDS: LASIX PO (17:12)
[2023-12-11] MEDS: LASIX 20 MG PO (17:49)
[2023-12-11] MEDS: COLACE PO ×2 (19:40→19:48)
[2023-12-11] MEDS: ANESTHETIC LOZENGE 1 LOZENGE PO (21:43)
[2023-12-11 23:00] VITALS: BP 112/76
[2023-12-12] VITALS (9 sets, daily range): BP systolic 97–128; BP diastolic 63–80
[2023-12-12] MEDS: SENOKOT 17.2 MG PO (00:23)
[2023-12-12] MEDS: ANESTHETIC LOZENGE 1 LOZENGE PO ×3 (00:28→13:08)
--- NOTE | 2023-12-12 00:55 | PTCARENOTE ---
Upon start of shift, patient rang call [place]. Entering the room patients stated patient was in bathroom and his abscess drain ' fell out!' Upon assessment, patient right upper abdominal drain was laying in sink in bathroom and open area to upper
abdomen with small amount purulent drainage and blood. Patient states' it just fell out as well.' Open area to abdomen cleansed and covered with clean dry dressing. Drainage tube placed in bio hazard bag. call center consultant [employer] notified. Per [employer]IV[employer]ITY [employer] PROGRAM ASSOCIATE, cover open
area as already done and UNIVERSITY SERVICES PROGRAM ASSOCIATE said she will relay to Incoming MD in am. Information relayed to patient and at bedside. Area remains covered with dressing and is currently clean and dry without any soilage. Will continue to monitor dressing for
any soiling.
[2023-12-12] MEDS: DILAUDID 1 MG IV ×4 (05:27→22:33)
[2023-12-12 05:46] LABS: % Basophils 0.3 % (0-2); % Eosinophils 3.4 % (0-6); % Immature Granulocytes 0.6 % (0-0.5); % Lymphocytes 5.7 % (20.5-51.1); % Monocytes 6.2 % (1.7-9.3); % Neutrophils 83.8 % (42.2-75.2); Absolute Eosinophils 0.5 10^3/uL (0-0.7); Absolute Immature Granulocytes 0.1 10^3/uL (0-0.05); Absolute Lymphocytes 0.9 10^3/uL (1.2-3.4); Absolute Monocytes 0.9 10^3/uL (0.1-0.6); Absolute Neutrophils 12.8 10^3/uL (1.4-6.5); Hematocrit 23.6 % (39.0-52.0); Hemoglobin 7.7 g/dL (13.0-18.0); Mean Corp Hgb Conc. 32.6 g/dL (33.0-37.0); Mean Corpuscular Hgb 24.3 pg (27.0-31.0); Mean Corpuscular Volume 74.4 fL (80.0-94.0); Mean Platelet Volume 9.1 fL (7.4-10.4); Nucleated Red Blood Cells % 0 % (-); Platelet Count 267 10^3/uL (130-400); Red Blood Cell Count 3.17 10^6/uL (4.70-6.10); Red Cell Dist. Width 15.1 % (11.5-14.5); White Blood Cell Count 15.2 10^3/uL (4.8-10.8)
[2023-12-12 06:00] LABS: Blood Urea Nitrogen 11 mg/dl (9-20); Calcium 7.7 mg/dl (8.4-10.2); Carbon Dioxide 24 mmol/L (22-30); Chloride 98 mmol/L (98-107); Estimated Creatinine Clearance 117 ml/min; Glucose 96 mg/dl (70-99); Potassium 4.2 mmol/L (3.5-5.1); Sodium 127 mmol/L (135-145); eGFR > 60.00
[2023-12-12 06:30] LABS: TSH Reflex To Free T4 3.74 uIU/ml (0.47-4.68)
[2023-12-12] MEDS: PROTONIX PO ×2 (08:40→10:36)
[2023-12-12] MEDS: MIRALAX 17 GRAMS PO (08:40)
[2023-12-12] MEDS: SENOKOT PO ×2 (08:40→20:29)
[2023-12-12] MEDS: COLACE PO ×3 (08:40→20:29)
[2023-12-12] MEDS: AUGMENTIN 875 MG/125 MG PO ×2 (08:40→10:36)
--- NOTE | 2023-12-12 09:49 | W.PN.HOSP.TC ---
Today's Communication/Plan
-
Interventional radiology aspiration of abscess
Assessment / Plan
Assessment / Plan
Impression:
63-year-old M who has been battling colon cancer for the past 8 years. He has had colectomy done and also tumor resection in the liver. His last surgery was in 2022 where he had an abscess and drain was placed in the abscess-which eventually
developed a fistula because of flushing. He also has a biliary drain. Patient has not been on any treatment since November 2022. He follows with [place] Dr. Servin. Patient was found to have a left humerus lesion and the plan was to follow-up with
Ortho oncology at [place]. 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
Plan:
#Pathological fracture of the left humerus shaft with angulation secondary to minor trauma
-Closed fracture per discussion with ER
-ER contacted patient's [place] oncology orthopedics Dr. Savannah Pillai
-Orthopedic oncology recommendation is to do a brace and discharge the patient with pain control
-Dr. Pillai will see patient as outpatient on Friday.
# Leukocytosis
-Likely stress reaction or from malignancy
# Anemia likely secondary to malignancy.
-No active bleeding
-Hemoglobin on admission 7.2
-Status post 1 unit of packed red blood cells ordered in the ER
-7.7 this a.m.
-Daily CBCs
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
-Sodium admission 126
-127 today, improving
-Check osmolality studies and also urine sodium
# Chronic pain opiate dependent
-Continue fentanyl and continue Dilaudid and titrate as needed
# Metastatic colon cancer stage IV followed at [place] by Dr. Servin
-History of sigmoidectomy in 2018 and adjuvant Chemo
-History of right metastasectomy for liver lesion 2020 at [facility]
-Right hepatectomy in 2021 with adjuvant chemotherapy
-Debulking surgery with internal biliary drain placement December 2022
-Patient has not been on any treatment since December 2022
# Chronic right upper quadrant abscess
- right upper quadrant drain
-Drain was either removed or fell out last night
-IR consulted to drain abscess and replace drain
-CT demonstrated 17.2 cm abscess patient's abdomen
-Culture and Gram stain ordered for abscess aspirate
-Continue chronic antibiotics
-History of endobronchial valve with upsizing
# History pulmonary embolism
# GERD-continue PPI
# Hypoalbuminemia
# Right adrenal metastasis
# Ex Smoker
Diet: Regular
DVT prophylaxis-SCDs
DNR/DNI
Anticipated Discharge: Within 24 hours
Subjective/Interval History
-
Date of Service: December 12, 2023
pt removed biliary drain overnight, reported bleeding
Was covered with a dressing only
reports pain not controlled
Objective Data
-
Labs:
Laboratory Results
12/12/23
04:18
WBC 15.2 H
Hgb 7.7 L
Hct 23.6 L
Plt Count 267
Sodium 127 L
Potassium 4.2
Chloride 98
Carbon Dioxide 24
BUN 11
Creatinine 0.4 L
Glucose 96
Calcium 7.7 L
Vital Signs:
Vital Signs
Temp Pulse Resp BP Pulse Ox
98.3 F 84 18 109/76 96
12/12/23 07:47 12/12/23 07:47 12/12/23 07:47 12/12/23 07:47 12/12/23 07:47
I&O
12/11/23 12/12/23 12/13/23
06:59 06:59 06:59
Intake Total 250 / 250 1760 / 1760
Output Total 350 / 350
Balance 250 / 250 1410 / 1410
Review of Systems
-
History Source: Patient
Constitutional: Reports No Symptoms
Cardiac: Reports No Symptoms
Physical Exam
-
General: Pain
Respiratory: Clear to Auscultation
Cardiac: Regular Rhythm and S1/S2
GI: Soft and Nontender
Data Reviewed
-
Labs: Labs Reviewed by me and Discussed with Physician
--- NOTE | 2023-12-12 10:40 | CM ---
CM following re: discharge planning.
Reviewed pt's chart, met with pt.
Pt's admission status has been changed from OBS to inpatient. IMM reviewed, placed on chart, pt has a copy.
Per CM note, patient is independent with adl's and ambulation, patient with Humerus fx however patient states he is able to ambulate to bathroom and feels he is at baseline. Pt lives with spouse in a 2SH.
PT and OT will evaluate the pt to determine a level of acre at [facility].
D/C plan: home with anticipated no needs vs outpatient PT/OT/VN if recommended by PT/OT.
CM will follow with discharge plan updates as hospitalization progresses
--- NOTE | 2023-12-12 11:17 | W.PN.UPDATE ---
Addendum entered and electronically signed by Marina Butts MD 12/12/23 15:13:
Went back with Resident.
CT scan report noted met with patient and patient's brother was also at bedside at that time. Reviewed the plan with him. Patient kept going back between morning to go to [facility] and getting it done here.
Made patient aware what my discussion was with plan and based on that advised to make a decision. He was made aware that if he were to wait too long to get the collection drained he could go into sepsis.
Brother wanted the patient to get it done here. Finally patient made the decision to get it done at [facility].
My prior conversation with patient's this morning she stated that after he fell she wanted him to go to [facility] and not come to [facility] however he insisted on coming to [facility] at that time.
He is aware that [facility] recommended that he get the procedure done here if it can be done here as they do not have any beds available at present. I also made him aware waiting is not at his best interest.
Total time between 2 visits and phone calls and discussion over 50 min
Original Note:
Update Note
Progress Note Update
Liver abscess drain got dislodged last night. Patient Not sure how.
Spoke to patient an they would rather have the patient go to [facility] for the procedure. Called IR number gave me , Went to message. [facility] sanding machine operator could not connect me to any one due to computer issues. Delay in care if done at [facility] explained
o the patient.
I made patient aware that I can ask IR here to do it. He wants to think.
In the mean time I have ordered a CT with IV contrast to further evaluate the abdomen.
Exam
Immobilizer on the LUE.
Right abdomen with bleeding at the site of drain displacement.
Other exam un remarkable.
Patient made aware about the [facility] conversation.
Patient willing to get it done here under the difficult transfer circumstances.
I have reached out to IR
D/W from patients cell
Time 50 min
[2023-12-12] MEDS: AUGMENTIN 875 MG/125 MG 1 TABLET PO (20:28)
[2023-12-13] MEDS: DILAUDID 1 MG IV ×4 (03:58→23:07)
[2023-12-13 07:00] VITALS: BP 103/56
[2023-12-13 07:18] LABS: % Basophils 0.2 % (0-2); % Eosinophils 1.1 % (0-6); % Immature Granulocytes 0.6 % (0-0.5); % Lymphocytes 7.2 % (20.5-51.1); % Monocytes 4.7 % (1.7-9.3); % Neutrophils 86.2 % (42.2-75.2); Absolute Eosinophils 0.1 10^3/uL (0-0.7); Absolute Immature Granulocytes 0.1 10^3/uL (0-0.05); Absolute Lymphocytes 0.9 10^3/uL (1.2-3.4); Absolute Monocytes 0.6 10^3/uL (0.1-0.6); Absolute Neutrophils 10.9 10^3/uL (1.4-6.5); Hematocrit 22.9 % (39.0-52.0); Hemoglobin 7.6 g/dL (13.0-18.0); Mean Corp Hgb Conc. 33.2 g/dL (33.0-37.0); Mean Corpuscular Hgb 25.2 pg (27.0-31.0); Mean Corpuscular Volume 76.1 fL (80.0-94.0); Mean Platelet Volume 9.1 fL (7.4-10.4); Nucleated Red Blood Cells % 0 % (-); Platelet Count 241 10^3/uL (130-400); Red Blood Cell Count 3.01 10^6/uL (4.70-6.10); Red Cell Dist. Width 15.4 % (11.5-14.5); White Blood Cell Count 12.6 10^3/uL (4.8-10.8)
[2023-12-13 07:32] LABS: ALT (SGPT) 14 U/L (0-50); AST (SGOT) 32 U/L (17-59); Albumin 2.1 g/dl (3.5-5.0); Alkaline Phosphatase 678 U/L (38-126); Blood Urea Nitrogen 11 mg/dl (9-20); Calcium 7.9 mg/dl (8.4-10.2); Carbon Dioxide 27 mmol/L (22-30); Chloride 100 mmol/L (98-107); Estimated Creatinine Clearance 117 ml/min; Glucose 90 mg/dl (70-99); Sodium 129 mmol/L (135-145); Total Bilirubin 1.3 mg/dl (0.2-1.3); Total Protein 5.7 g/dl (6.3-8.2); eGFR > 60.00
[2023-12-13] MEDS: MIRALAX PO (08:26)
[2023-12-13] MEDS: PROTONIX 40 MG PO (08:30)
[2023-12-13] MEDS: SENOKOT 17.2 MG PO (08:30)
[2023-12-13] MEDS: COLACE 100 MG PO (08:30)
--- NOTE | 2023-12-13 08:53 | CON.ID ---
Consultation
-
Date/Time Consultation Requested: 12/12/2023 1432
Date/Time Consultation Performed: 12/13/2023 08:30
Requesting Provider: Dr. Butts
Performing Provider: Dr. Ramirez
Reason for Consultation: Abdominal collection
Chief Complaint / Past History
History of Present Illness
Bk Moe is a 63-year-old man being evaluated at the request of Dr. Butts in regards to an abdominal collection. History is obtained from chart review, along with patient interview.
The patient is a 62-year-old male with stage IV colon adenocarcinoma initially diagnosed in 2016 status post partial colectomy. In 2019, he was found to have liver metastasis status post partial right hepatectomy at [facility]. In 2020 he was found to
have recurrence of liver metastases. In 12/2020 malignant biliary obstruction status post bile duct stent placement. He underwent further right hepatectomy late 2020 complicated by hepatic abscess requiring drain placement. Abscess recurred early
2021 and had long course of IV abx followed by po abx. Abscess persisted, had another course of IV antibiotic. Biopsy at abscess site + malignancy. He was started on chemo until 09/2022. On 12/12/22 he was electively admitted status post hepatic
tumor debulking and drainage of abscess. He was discharged to home with JASMIN drain and po amox/cav. However he was readmitted to [facility] 12/19 to 12/24 with fever and drainage from the right side surgical wound site. CT with contrast showed no fistula
from duodenum to liver. The biliary stent was exchanged. He was on a course of IV antibiotic then discharged to home on Bactrim 3 times daily.
He presented to [facility] on 12/09 following the development of a left humerus fracture which was felt to be pathologic.
The patient reports he has had a right upper quadrant drain for the past year and 1/2 to 2 years. He is followed at [facility] every 4 to 6 weeks for drain exchange. He has been followed by Infectious Diseases at [facility] and has been maintained on Augmentin
for the same time period, presumably for suppressive therapy. He has not sure of prior culture results. Yesterday, the drain became dislodged, but at this point has been replaced by Interventional Radiology.
Past History
Additional Past Medical History:
Stage IV colon adenoca s/p partial colectomy, hepatectomy, XRT, Chemo (last received 09/2022)
Malignant biliary obstruction s/p bile stent placed 12/2020, s/p exchanged 12/2022
Chronically infected hepatic tumor s/p debulking surgery, drain placement 12/12/22
Cholecystectomy
port placement
Allergy History:
levofloxacin [From Levaquin] Allergy (Verified 12/10/23 11:19)
Rash
Tetanus Vaccines and Toxoid Allergy (Verified 12/10/23 11:19)
joint pain
oxcilplation Allergy (Uncoded 12/10/23 11:19)
Anaphylaxis
Medications Reviewed: Yes
Current Antibiotics:
Augmentin
Social History
Tobacco: Non-Smoker
Alcohol: None
Drug: None
Personal:
Living: With Family
Employment: Retired
Review of Systems
Vital Signs
Temp Pulse Resp BP Pulse Ox
97.6 F 69 20 103/56 97
12/13/23 07:00 12/13/23 07:00 12/13/23 07:00 12/13/23 07:00 12/13/23 07:00
Physical Exam
Physical Exam
Constitutional: No Acute Distress, Comfortable and Non-toxic
Eyes: No Conjunctival Hemorrhage and Sclera Anicteric
Oral: No Thrush and No Ulcers
Cardiovascular: Regular Rate and S1/S2; Negative S3/S4
Pulmonary: Clear; Negative Wheezes, Rales or Rhonchi
Gastrointestinal: Soft, Normal Bowel Sounds and Other (Right upper quadrant biliary drain with brownish drainage (with malodor; ?fecal). Left upper quadrant biliary drain; capped.)
Extremities: Negative Edema, Cyanosis or Erythema
Neurological: Awake and Alert
Psychological: Calm
Lab / Diagnostic Study Results
12/13/23 06:38
12/13/23 06:38
Abs Immat Gran (auto) 0.1 10^3/uL (0-0.05) H 12/13/23 06:38
Absolute Neuts (auto) 10.9 10^3/uL (1.4-6.5) H 12/13/23 06:38
Absolute Lymphs (auto) 0.9 10^3/uL (1.2-3.4) L 12/13/23 06:38
Absolute Monos (auto) 0.6 10^3/uL (0.1-0.6) 12/13/23 06:38
Absolute Basos (auto) 0.0 10^3/uL (0-0.2) 12/13/23 06:38
Immature Gran % 0.6 % (0-0.5) H 12/13/23 06:38
Neutrophils % 86.2 % (42.2-75.2) H 12/13/23 06:38
Lymphocytes % 7.2 % (20.5-51.1) L 12/13/23 06:38
Monocytes % 4.7 % (1.7-9.3) 12/13/23 06:38
Eosinophils % 1.1 % (0-6) 12/13/23 06:38
Basophils % 0.2 % (0-2) 12/13/23 06:38
PT 16.4 Sec (11.4-14.6) H 12/11/23 08:46
INR 1.31 12/11/23 08:46
Microbiology Results
Micro:
12/12/23 17:00 Wound Culture - Pending
Abscess Gram Stain - Preliminary
Imaging:
12/12/2023 CT abdomen with contrast: Prior right hepatic lobectomy. Percutaneous biliary drainage catheter extending anteriorly from the left upper abdomen through the left lobe of the liver, and into the duodenum. A large right-sided abdominal
abnormal fluid collection suspicious for abscess measures greater than 17.2 cm, versus 2 smaller collections. Please see full dictation for additional detail.
Assessment / Plan
Chronic right-sided abdominal fluid collection with chronic drainage
-Patient on chronic suppressive Augmentin
Pathologic left humeral fracture
Metastatic colon cancer
Leukocytosis
Recommendations:
Continue with Augmentin for the present.
A culture has been obtained from the drain; will await results.
Patient for outpatient follow-up with [facility] (oncology, orthopedics)
Care Review
Plan reviewed with: Physician (Hospitalist)
--- NOTE | 2023-12-13 09:43 | W.PN.HOSP.TC ---
Addendum entered and electronically signed by Marina Butts MD 12/13/23 13:08:
I personally performed a history and physical exam of the patient and discussed management with the resident. I reviewed the resident's note and agree with the documented findings and plan of care HPI/CC except change in documentation.
patient feels better
IR drained 25 ml fluid
CX pending
CXR noted- atelectasis-Add IS
Advised patient to take p.o. Dilaudid first before he uses IV. He understands that this is needed to titrate his p.o. so he can be comfortable when he is going home.
Continue antibiotics
Infectious disease consultation appreciated
Possible discharge tomorrow
Will request images to be put on a CD for patient to take for his appointment at [facility].
Original Note:
Documented by User: Darion Menjivar DO, Resident 12/13/23 09:47
Today's Communication/Plan
-
Monitor drainage site
Potential discharge
Assessment / Plan
Assessment / Plan
Impression:
63-year-old M who has been battling colon cancer for the past 8 years. He has had colectomy done and also tumor resection in the liver. His last surgery was in 2022 where he had an abscess and drain was placed in the abscess-which eventually
developed a fistula because of flushing. He also has a biliary drain. Patient has not been on any treatment since November 2022. He follows with [facility] Dr. Servin. Patient was found to have a left humerus lesion and the plan was to follow-up with
Ortho oncology at [facility]. 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
Plan:
#Pathological fracture of the left humerus shaft with angulation secondary to minor trauma
-Closed fracture per discussion with ER
-ER contacted patient's [facility] oncology orthopedics Dr. Savannah Pillai
-Orthopedic oncology recommendation is to do a brace and discharge the patient with pain control
-Dr. Pillai will see patient as outpatient at [facility] on Friday at 1:45 PM
# Leukocytosis
-Downtrending, 12.6 today
-Likely stress reaction or from malignancy
# Anemia likely secondary to malignancy.
-Hemoglobin on admission 7.2
-Status post 1 unit of packed red blood cells ordered in the ER
-7.6 this a.m.
-Daily CBCs
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
-Sodium admission 126
-127 today, improving
-Check osmolality studies and also urine sodium
# Chronic pain opiate dependent
-Continue fentanyl and continue Dilaudid and titrate as needed
# Metastatic colon cancer stage IV followed at [facility] by Dr. Servin
-History of sigmoidectomy in 2017 and adjuvant Chemo
-History of right metastasectomy for liver lesion 2020 at [facility]
-Right hepatectomy in 2021 with adjuvant chemotherapy
-Debulking surgery with internal biliary drain placement December 2022
-Patient has not been on any treatment since December 2022
# Chronic right upper quadrant abscess
- right upper quadrant drain
-Drain was either removed or fell out last night
-IR consulted to drain abscess and replace drain
-CT demonstrated 17.2 cm abscess patient's abdomen
-Culture and Gram stain ordered for abscess aspirate
-ID consulted
-Continue chronic antibiotics
-History of endobronchial valve with upsizing
# History pulmonary embolism
# GERD-continue PPI
# Hypoalbuminemia
# Right adrenal metastasis
# Ex Smoker
Diet: Regular
DVT prophylaxis-SCDs
DNR/DNI
Anticipated Discharge: Within 24 hours
Subjective/Interval History
-
Date of Service: December 13, 2023
No acute events overnight, new drain in place
Objective Data
-
Labs:
Laboratory Results
12/13/23
06:38
WBC 12.6 H
Hgb 7.6 L
Hct 22.9 L
Plt Count 241
Sodium 129 L
Potassium 4.0
Chloride 100
Carbon Dioxide 27
BUN 11
Creatinine 0.5 L
Glucose 90
Calcium 7.9 L
Total Bilirubin 1.3
AST 32
ALT 14
Alkaline Phosphatase 678 H
Vital Signs:
Vital Signs
Temp Pulse Resp BP Pulse Ox
97.6 F 69 20 103/56 97
12/13/23 07:00 12/13/23 07:00 12/13/23 07:00 12/13/23 07:00 12/13/23 07:00
I&O
12/12/23 12/13/23 12/14/23
06:59 06:59 06:59
Intake Total 1760 / 1760 70 / 70
Output Total 350 / 350 30 / 30
Balance 1410 / 1410 40 / 40
Review of Systems
-
History Source: Patient
Constitutional: Reports No Symptoms
Respiratory: Reports Cough
Cardiac: Reports No Symptoms
Abdomen/GI: Reports No Symptoms; Denies Abdominal Pain, Nausea, Vomiting or Pain
Musculoskeletal: Reports Other (humeral fracture pain)
Physical Exam
-
General: Pain, Appears Chronically Ill and Cachectic
Respiratory: Clear to Auscultation
Cardiac: Regular Rhythm and S1/S2
GI: Soft, Nontender, Nondistended, Normal Bowel Sounds and Other (biliary and abscess drains in place, no leakage or erythema surrounding )
Musculoskeletal: No Edema
Skin: Warm and Dry
Neuro: Awake, Alert, Oriented and AO x 3
Psych: Calm, Intact Judgement/Insight and Depressed
Data Reviewed
-
Labs: Labs Reviewed by me and Discussed with Physician

Documented by User: Marina Butts MD 12/13/23 13:02
Assessment / Plan
Assessment / Plan
Impression:
63-year-old M who has been battling colon cancer for the past 8 years. He has had colectomy done and also tumor resection in the liver. His last surgery was in 2022 where he had an abscess and drain was placed in the abscess-which eventually
developed a fistula because of flushing. He also has a biliary drain. Patient has not been on any treatment since November 2022. He follows with [facility] Dr. Servin. Patient was found to have a left humerus lesion and the plan was to follow-up with
Ortho oncology at [facility]. 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
Plan:
#Pathological fracture of the left humerus shaft with angulation secondary to minor trauma
-Closed fracture per discussion with ER
-ER contacted patient's [facility] oncology orthopedics Dr. Savannah Pillai
-Orthopedic oncology recommendation is to do a brace and discharge the patient with pain control
-Dr. Pillai will see patient as outpatient at [facility] on Friday at 1:45 PM
# Leukocytosis
-Downtrending, 12.6 today
-Likely stress reaction or from malignancy
# Anemia likely secondary to malignancy.
-Hemoglobin on admission 7.2
-Status post 1 unit of packed red blood cells ordered in the ER
-7.6 this a.m.
-Daily CBCs
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
-Sodium admission 126
-129 today, improving
-Check osmolality studies and also urine sodium
# Chronic pain opiate dependent
-Continue fentanyl and continue Dilaudid and titrate as needed
# Metastatic colon cancer stage IV followed at [facility] by Dr. Servin
-History of sigmoidectomy in 2018 and adjuvant Chemo
-History of right metastasectomy for liver lesion 2020 at [facility]
-Right hepatectomy in 2021 with adjuvant chemotherapy
-Debulking surgery with internal biliary drain placement December 2022
-Patient has not been on any treatment since December 2022
# Chronic right upper quadrant abscess
- right upper quadrant drain
-Drain was either removed or fell out last night
-IR drained 25 ml purulant fluid
-CT demonstrated 17.2 cm abscess patient's abdomen
-Culture and Gram stain ordered for abscess aspirate
-ID consulted
-Continue chronic antibiotics
-History of endobronchial valve with upsizing
# History pulmonary embolism
# GERD-continue PPI
# Hypoalbuminemia
# Right adrenal metastasis
# Ex Smoker
Diet: Regular
DVT prophylaxis-SCDs
DNR/DNI
[2023-12-13] MEDS: AUGMENTIN 875 MG/125 MG 1 TABLET PO ×2 (10:06→20:03)
--- NOTE | 2023-12-13 11:15 | CM ---
employment agency manager reviewed patient's chart and met with patient and patient to return to home when stable, possibly tomorrow.
Plan; Home when stable.
[2023-12-13 15:27] VITALS: BP 114/71
[2023-12-13] MEDS: CATHFLO/ACTIVASE 2 MG INTRACATH (17:06)
[2023-12-13 18:30] LABS: Hematocrit 24.5 % (39.0-52.0); Hemoglobin 8.1 g/dL (13.0-18.0)
[2023-12-13] MEDS: DURAGESIC 25 MCG/HR PATCH 1 PATCH TRANSDERM (19:46)
[2023-12-13] MEDS: COLACE PO (20:03)
[2023-12-13] MEDS: SENOKOT PO (20:04)
[2023-12-13 23:04] VITALS: BP 109/68
[2023-12-14] MEDS: DILAUDID 1 MG IV ×3 (02:51→12:58)
[2023-12-14 07:44] VITALS: BP 119/72
[2023-12-14 08:30] LABS: % Basophils 0.2 % (0-2); % Eosinophils 0.6 % (0-6); % Immature Granulocytes 0.5 % (0-0.5); % Lymphocytes 4.2 % (20.5-51.1); % Monocytes 5.1 % (1.7-9.3); % Neutrophils 89.4 % (42.2-75.2); Absolute Eosinophils 0.1 10^3/uL (0-0.7); Absolute Immature Granulocytes 0.1 10^3/uL (0-0.05); Absolute Lymphocytes 0.6 10^3/uL (1.2-3.4); Absolute Monocytes 0.8 10^3/uL (0.1-0.6); Absolute Neutrophils 13.2 10^3/uL (1.4-6.5); Hematocrit 24.9 % (39.0-52.0); Hemoglobin 8.2 g/dL (13.0-18.0); Mean Corp Hgb Conc. 32.9 g/dL (33.0-37.0); Mean Corpuscular Hgb 25.2 pg (27.0-31.0); Mean Corpuscular Volume 76.4 fL (80.0-94.0); Mean Platelet Volume 8.6 fL (7.4-10.4); Nucleated Red Blood Cells % 0 % (-); Platelet Count 270 10^3/uL (130-400); Red Blood Cell Count 3.26 10^6/uL (4.70-6.10); Red Cell Dist. Width 15.7 % (11.5-14.5); White Blood Cell Count 14.7 10^3/uL (4.8-10.8)
--- NOTE | 2023-12-14 08:47 | W.PN.HOSP.TC ---
Addendum entered and electronically signed by Marina Butts MD 12/14/23 14:42:
I personally performed a history and physical exam of the patient and discussed management with the resident. I reviewed the resident's note and agree with the documented findings and plan of care HPI/CC except change in documentation
ABd drain with bloody fluid
Abd soft
LUE on immobilizer
#Pathological fracture of the left humerus shaft with angulation secondary to minor trauma
Closed fracture per discussion with ER
Recommendation is to do a brace and discharge the patient with pain control
I spoke to Dr. Griselda Pillai-discussed about brace-Their office called and schedule an appointment for the patient around 1:45 PM on Friday
I discussed x-ray with orthopedics on-call. Angulation is acceptable.
X-ray after the brace looks better
# Dislodgment of right upper quadrant abscess drain. CT showed 17 cm collection. Patient was seen by interventional radiology and a drain was placed with 25 mL of purulent fluid.
Cultures with mixed growth
Continuing with Augmentin
ID evaluation appreciated
OK for discharge
Patient and brother aware that final cultures are pending.
# Leukocytosis likely stress reaction or from malignancy/ abscess
# Anemia likely secondary to malignancy. No active bleeding
Some bleeding expected from long bone fracture
1 unit of packed red blood cells this admit
Hemoglobin better
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
Improving fluid restriction
Fluid restriction at home moving forward
Patient was given a prescription for BMP as outpatient
# Chronic pain opiate dependent
Continue fentanyl and continue Dilaudid 4 mg
Patient is preferring to take IV Dilaudid while here despite discussing that when he goes home he is going to go back on p.o. and he should try it here to make sure if that need to be titrated or not.
# Metastatic colon cancer stage IV followed at [facility] by Dr. Servin
History of sigmoidectomy in 2018 and adjuvant Chemo
History of right metastasectomy for liver lesion 2020 at [facility]
Right hepatectomy in 2021 with adjuvant chemotherapy
Debulking surgery with internal biliary drain placement December 2022
Patient has not been on any treatment since December 2022
# Chronic right upper quadrant abscess - right upper quadrant drain
Continue chronic antibiotics
History of endobronchial valve with upsizing
# History pulmonary embolism
# GERD-continue PPI
# Hypoalbuminemia
# Right adrenal metastasis
# Ex Smoker
# DVT prophylaxis-Lovenox
# CODE STATUS-DNR per pt wishes
Brother at bedside
Discussed with both patient and brother regarding outpatient follow-up needs. With [facility]. May also follow-up with IR at [facility] tomorrow while there.
CD of the imaging made for the patient
Discussed with infectious disease-okay for discharge
Total discharge coordination time 37 minutes.
Original Note:
Today's Communication/Plan
-
Discharge today
Follow-up with Dr. Pillai at [facility] regarding pathologic fracture
Assessment / Plan
Assessment / Plan
Impression:
63-year-old M who has been battling colon cancer for the past 8 years. He has had colectomy done and also tumor resection in the liver. His last surgery was in 2022 where he had an abscess and drain was placed in the abscess-which eventually
developed a fistula because of flushing. He also has a biliary drain. Patient has not been on any treatment since November 2022. He follows with [facility] Dr. Servin. Patient was found to have a left humerus lesion and the plan was to follow-up with
Ortho oncology at [facility]. 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
Plan:
#Pathological fracture of the left humerus shaft with angulation secondary to minor trauma
-Closed fracture per discussion with ER
-ER contacted patient's [facility] oncology orthopedics Dr. Savannah Pillai
-Orthopedic oncology recommendation is to do a brace and discharge the patient with pain control
-Dr. Pillai will see patient as outpatient at [facility] on Friday at 1:45 PM
-OT ordered for patient regarding activities of daily living with a broken arm
# Leukocytosis
-Downtrending, 14.7 today
-Likely stress reaction or from malignancy
# Anemia likely secondary to malignancy.
-Hemoglobin on admission 7.2
-Status post 1 unit of packed red blood cells ordered in the ER
-8.2 this a.m.
-Daily CBCs
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
-Sodium admission 126
-129 today, improving
-Check osmolality studies and also urine sodium
# Chronic pain opiate dependent
-Continue fentanyl and continue Dilaudid and titrate as needed
-Patient reports pain is not well-controlled
# Metastatic colon cancer stage IV followed at [facility] by Dr. Servin
-History of sigmoidectomy in 2018 and adjuvant Chemo
-History of right metastasectomy for liver lesion 2020 at [facility]
-Right hepatectomy in 2021 with adjuvant chemotherapy
-Debulking surgery with internal biliary drain placement December 2022
-Patient has not been on any treatment since December 2022
# Chronic right upper quadrant abscess
- right upper quadrant drain
-Drain was either removed or fell out
-CT demonstrated 17.2 cm abscess patient's abdomen
-IR drained 25 ml purulant fluid, and placed new drain
-Culture and Gram stain ordered for abscess aspirate
-ID consulted, recommended continuing Augmentin
-Continue chronic antibiotics
-History of endobronchial valve with upsizing
-On discharge cultures of abscess have not resulted, patient will be discharged on home dose of Augmentin
-If cultures result with bacteria that is resistant to Augmentin, planning to contact patient and change antibiotic
# History pulmonary embolism
# GERD-continue PPI
# Hypoalbuminemia
# Right adrenal metastasis
# Ex Smoker
Diet: Regular
DVT prophylaxis-SCDs
DNR/DNI
Anticipated Discharge: Today
Subjective/Interval History
-
Date of Service: December 14, 2023
Patient reports dry mouth
As well as foul-smelling drainage from his new abscess drain
Objective Data
-
Labs:
Laboratory Results
12/14/23
08:11
WBC 14.7 H
Hgb 8.2 L
Hct 24.9 L
Plt Count 270
Sodium Pending
Potassium Pending
Chloride Pending
Carbon Dioxide Pending
BUN Pending
Creatinine Pending
Glucose Pending
Calcium Pending
Vital Signs:
Vital Signs
Temp Pulse Resp BP Pulse Ox
98.2 F 89 18 119/72 95
12/14/23 07:44 12/14/23 07:44 12/14/23 07:44 12/14/23 07:44 12/14/23 07:44
I&O
12/13/23 12/14/23 12/15/23
06:59 06:59 06:59
Intake Total 70 / 70 570 / 570
Output Total 30 / 30 130 / 130
Balance 40 / 40 440 / 440
Review of Systems
-
History Source: Patient
Constitutional: Reports No Symptoms
Respiratory: Reports Cough; Denies Hemoptysis or Trouble Breathing
Cardiac: Reports No Symptoms
Abdomen/GI: Reports No Symptoms; Denies Abdominal Pain
Musculoskeletal: Reports Other (Left arm pain, secondary to pathologic fracture)
Psych: Reports Sad
Physical Exam
-
General: Pain and Appears Chronically Ill; Negative Respiratory Distress
Respiratory: Clear to Auscultation
Cardiac: Regular Rhythm and S1/S2
GI: Soft, Nontender, Nondistended and Normal Bowel Sounds
Musculoskeletal: No Edema
Neuro: Awake, Alert, Oriented and AO x 3
Psych: Calm and Intact Judgement/Insight
Data Reviewed
-
Labs: Labs Reviewed by me and Discussed with Physician
[2023-12-14] MEDS: SENOKOT 17.2 MG PO (09:11)
[2023-12-14] MEDS: AUGMENTIN 875 MG/125 MG 1 TABLET PO (09:11)
[2023-12-14] MEDS: PROTONIX 40 MG PO (09:11)
[2023-12-14 09:12] LABS: Blood Urea Nitrogen 10 mg/dl (9-20); Calcium 8.1 mg/dl (8.4-10.2); Carbon Dioxide 25 mmol/L (22-30); Chloride 101 mmol/L (98-107); Estimated Creatinine Clearance 117 ml/min; Glucose 97 mg/dl (70-99); Potassium 4.2 mmol/L (3.5-5.1); Sodium 129 mmol/L (135-145); eGFR > 60.00
[2023-12-14] MEDS: COLACE 100 MG PO (09:12)
[2023-12-14] MEDS: MIRALAX PO (09:12)
--- NOTE | 2023-12-14 10:20 | W.PN.ID1 ---
Date of Service
Date of Service: December 14, 2023
Today's Communication
Continue chronic suppressive Augmentin.
Assessment / Plan
Chronic right-sided abdominal fluid collection with chronic drainage
-Patient on chronic suppressive Augmentin
Pathologic left humeral fracture
Metastatic colon cancer
Leukocytosis
Recommendations:
Continue with Augmentin for the present.
Patient for outpatient follow-up with [facility] (oncology, orthopedics)
Patient will additionally need outpatient follow-up with his usual Infectious Diseases physician.
No objection to discharge from Infectious Disease standpoint.
����������������������������������������������������������
Chief Complaint
-: Other (chronic abdominal abscess)
Subjective / Review of Systems
Review of Systems: No Fever and No Chills
Vital Signs / Physical Exam
Vital Signs
Vital Signs
Temp Pulse Resp BP Pulse Ox
98.2 F 89 18 119/72 95
12/14/23 07:44 12/14/23 07:44 12/14/23 07:44 12/14/23 07:44 12/14/23 07:44
Physical Exam
Constitutional: No Acute Distress, Comfortable and Non-toxic
Eyes: Sclera Anicteric
Cardiovascular: S1/S2; Negative S3/S4
Pulmonary: Non Labored
Gastrointestinal: Soft, Non Distended and Other (Right upper quadrant JASMIN in place with brownish drainage. Left anterior drain in place; capped)
Extremities: Negative Edema, Cyanosis or Erythema
Neurological: Awake, Alert and Oriented
Psychological: Calm
Objective Data
Lab Data
Lab Results
12/14/23 08:11
12/14/23 08:11
PT 16.4 Sec (11.4-14.6) H 12/11/23 08:46
INR 1.31 12/11/23 08:46
APTT 74.6 Sec (23.4-35.0) H 12/11/23 08:46
Estimated Creat Clear 117 ml/min 12/14/23 08:11
Total Bilirubin 1.3 mg/dl (0.2-1.3) 12/13/23 06:38
AST 32 U/L (17-59) 12/13/23 06:38
ALT 14 U/L (0-50) 12/13/23 06:38
Alkaline Phosphatase 678 U/L (38-126) H 12/13/23 06:38
Most recent labs reviewed.
Micro Results:
12/12/23 17:00 Wound Culture - Preliminary
Abscess Gram negative bacilli
Diptheroids
Gram Stain - Preliminary
Imaging:
12/12/2023 CT abdomen with contrast: Prior right hepatic lobectomy. Percutaneous biliary drainage catheter extending anteriorly from the left upper abdomen through the left lobe of the liver, and into the duodenum. A large right-sided abdominal
abnormal fluid collection suspicious for abscess measures greater than 17.2 cm, versus 2 smaller collections. Please see full dictation for additional detail.
Care Review
Plan reviewed with: Physician (Hospitalist)
--- NOTE | 2023-12-14 14:27 | W.DCSUMMARY ---
Documented by User: Darion Menjivar DO, Resident 12/14/23 14:50
Discharge Summary
Discharge Data
Date of Admission: 12/10/23
Date of Discharge: 12/14/23
-
Pending Results: Yes
Additional Pending Results:
Culture for abscess drainage
Hospital Course
Discharging Physician : Benjamín Menjivar
Disposition : Home
Primary care physician : Teresita Donohue
Principal Discharge diagnosis : Pathological fracture
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
Hospital Course : 63-year-old male with a past medical history of metastatic colon cancer presented to the emergency department after a pathologic fracture in the morning, on his left humerus. Patient was planning to see Ortho oncology at [facility] the
day of his fracture. Fracture was secondary to metastasis from his colon cancer. On admission patient's hemoglobin noted to be 7.1, patient received 1 unit of packed red blood cells in the ED. Hemoglobin then corrected to 8.2 and did not decrease
for the remainder of his hospital stay. In the ED he had an x-ray which showed a closed diaphyseal left humeral shaft fracture approximately 23 degrees varus angulation with minimal shortening. This is considered to be within acceptable parameters
for nonoperative care per orthopedics. Orthopedics saw the patient and agreed with recommendations to transition him to a Anthony style fracture brace, continue pain control and discharge the patient home to follow-up with Dr. Griselda Pillai,
orthopedic oncologist at [facility] on Friday. Dr. Butts spoke to Dr. Pillai personally and set up an appointment for the patient at 1:45 PM December 15, 2023. Patient was placed in a brace and a subsequent humeral x-ray was done, fracture appeared
slightly improved compared to previous study in terms of angulation. 12/12/2023 the patient's chronic abscess drain either fell out or was removed by the patient. CT abdomen pelvis was ordered to evaluate for new IR drain, 17.2 cm abscess was
discovered. IR took the patient and placed the drain successfully. Drain was noted to be in place, with no pain, and was noted to be successfully draining black fluid. Patient will be discharged home and will plan to follow-up with Dr. Pillai at
[facility] tomorrow.
Important imaging findings :
12/10/2023 humeral x-ray, findings:
There is a mildly displaced, angulated pathologic fracture through the midshaft of the LEFT humerus. There is a moth-eaten appearance of the trabecula with mild periosteal thickening. There is a partially imaged port within the left chest wall.
12/11/2023 humeral x-ray, findings:
Pathologic fracture is again identified within the mid shaft of the left humerus. There is mild angulation of fracture fragments and mild displacement, both which are slightly improved compared to prior study.
Lucent lesion is seen within the midportion of the left humerus, unchanged.
Procedure findings :
12/12/2023 CT-guided abdominal abscess percutaneous drainage, impressions:
Successful CT guided drainage catheter placement into a pelvic abscess, yielding 25 mL of grossly purulent fluid.
Discharge Plan
-
Patient Disposition: Home (Routine Discharge)
Discharge Diagnosis/Procedures: Pathological fracture left Humerus, leukocytosis, anemia, hyponatremia, chronic pain, metastatic colon cancer stage IV, chronic right upper quadrant abscess, GERD, hypoalbuminemia, right adrenal met, history of
pulmonary embolism, constipation
Condition: Fair
Diet: No restrictions
Activity: As tolerated, No strenuous activity and Other activity
Additional Activity: Do not use left arm until cleared by Dr Pillai
Driving Restrictions: No driving
Bathing Restrictions: After seen by
Other Services: VN
Activity Restrictions/Additional Instructions:
Please follow up with Dr Griselda Pillai at [facility]. Her number is [phone]. An appointment has been made for you with Dr. Pillai for 1:45 PM on Friday12/15/2023
Please follow up with your primary care provider in one week.
Continue biliary flushes as prior to admission. Please do not get your left arm wet until after cleared by Dr Pillai to shower.
Please continue pain medications as needed.
Please continue medications for constipation .
Instructions: How to Use a Shoulder Sling, Splint Care
Referrals:
Teresita Donohue PA-C [Family Provider] - in one week
Corrine Pillai MD [Non-Admitting Privileges] - in one day
Additional Discharge Medication Instructions: Please use healthy lax once per day and senna laxative twice per day as needed for constipation
Prescriptions:
New
sennosides [Senna Laxative] 8.6 mg Tablet
17.2 mg PO BID Qty: 0 0RF
polyethylene glycol 3350 [HealthyLax] 17 gram Powder In Packet
17 g PO DAILY Qty: 0 0RF
Continued
omeprazole 20 mg Tablet,Delayed Release (Dr/Ec)
20 mg PO DAILY
amoxicillin-pot clavulanate 875-125 mg Tablet
1 tab PO BID
hydromorphone 4 mg Tablet
4 mg PO Q4HPRN PRN (Reason: severe pain)
diclofenac sodium 1 % Gel
1 ea TOPICAL BIDPRN PRN (Reason: left arm)
fentanyl 25 mcg/hr Patch 72 Hour
1 patch TRANSDERMAL Q72H
Discontinued
sennosides [senna] 8.6 mg Tablet
8.6 mg PO HS
Discharge Orders:
Discharge Patient (As Directed); Ordered 12/14/23
Ordered By: Darion Menjivar
Discharge Date and Time
Discharge Date/Time: 12/14/23 16:36
Print Language: HONG KONGER

Documented by User: Marina Butts MD 12/15/23 09:29
Discharge Summary
Discharge Data
Date of Admission: 12/12/23
Date of Discharge: 12/15/23
Hospital Course
Discharging Physician : Benjamín Menjivar
Disposition : Home
Primary care physician : Teresita Donohue
Principal Discharge diagnosis : Pathological fracture
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
Hospital Course : 63-year-old male with a past medical history of metastatic colon cancer presented to the emergency department after a pathologic fracture in the morning, on his left humerus. Patient was planning to see Ortho oncology at [place] the
day of his fracture. Fracture was secondary to metastasis from his colon cancer. On admission patient's hemoglobin noted to be 7.1, patient received 1 unit of packed red blood cells in the ED. Hemoglobin then corrected to 8.2 and did not decrease
for the remainder of his hospital stay. In the ED he had an x-ray which showed a closed diaphyseal left humeral shaft fracture approximately 23 degrees varus angulation with minimal shortening. This is considered to be within acceptable parameters
for nonoperative care per orthopedics. Orthopedics saw the patient and agreed with recommendations to transition him to a Anthony style fracture brace, continue pain control and discharge the patient home to follow-up with Dr. Griselda Pillai,
orthopedic oncologist at [facility] on Friday. Dr. Butts spoke to Dr. Pillai personally and set up an appointment for the patient at 1:45 PM December 15, 2023. Patient was placed in a brace and a subsequent humeral x-ray was done, fracture appeared
slightly improved compared to previous study in terms of angulation. 12/12/2023 the patient's chronic abscess drain either fell out or was removed by the patient. CT abdomen pelvis was ordered to evaluate for new IR drain, 17.2 cm abscess was
discovered. IR took the patient and placed the drain successfully. Drain was noted to be in place, with no pain, and was noted to be successfully draining . Patient will be discharged home and will plan to follow-up with Dr. Pillai at [facility]
tomorrow.
Important imaging findings :
12/10/2023 humeral x-ray, findings:
There is a mildly displaced, angulated pathologic fracture through the midshaft of the LEFT humerus. There is a moth-eaten appearance of the trabecula with mild periosteal thickening. There is a partially imaged port within the left chest wall.
12/11/2023 humeral x-ray, findings:
Pathologic fracture is again identified within the mid shaft of the left humerus. There is mild angulation of fracture fragments and mild displacement, both which are slightly improved compared to prior study.
Lucent lesion is seen within the midportion of the left humerus, unchanged.
Procedure findings :
12/12/2023 CT-guided abdominal abscess percutaneous drainage, impressions:
Successful CT guided drainage catheter placement into a pelvic abscess, yielding 25 mL of grossly purulent fluid.
Discharge Plan
-
Patient Disposition: Home (Routine Discharge)
Discharge Diagnosis/Procedures: Pathological fracture left Humerus, leukocytosis, anemia, hyponatremia, chronic pain, metastatic colon cancer stage IV, chronic right upper quadrant abscess, GERD, hypoalbuminemia, right adrenal met, history of
pulmonary embolism, constipation
Condition: Fair
Diet: No restrictions
Activity: As tolerated, No strenuous activity and Other activity
Additional Activity: Do not use left arm until cleared by Dr Pillai
Driving Restrictions: No driving
Bathing Restrictions: After seen by
Other Services: VN
Activity Restrictions/Additional Instructions:
Please follow up with Dr Griselda Pillai at [facility]. Her number is [phone]. An appointment has been made for you with Dr. Pillai for 1:45 PM on Friday12/15/2023
Please follow up with your primary care provider in one week.
Continue biliary flushes as prior to admission. Please do not get your left arm wet until after cleared by Dr Pillai to shower.
Please continue pain medications as needed.
Please continue medications for constipation .
Instructions: How to Use a Shoulder Sling, Splint Care
Referrals:
Teresita Donohue PA-C [Family Provider] - in one week
Corrine Pillai MD [Non-Admitting Privileges] - in one day
Additional Discharge Medication Instructions: Please use healthy lax once per day and senna laxative twice per day as needed for constipation
Prescriptions:
New
sennosides [Senna Laxative] 8.6 mg Tablet
17.2 mg PO BID Qty: 0 0RF
polyethylene glycol 3350 [HealthyLax] 17 gram Powder In Packet
17 g PO DAILY Qty: 0 0RF
Continued
omeprazole 20 mg Tablet,Delayed Release (Dr/Ec)
20 mg PO DAILY
amoxicillin-pot clavulanate 875-125 mg Tablet
1 tab PO BID
hydromorphone 4 mg Tablet
4 mg PO Q4HPRN PRN (Reason: severe pain)
diclofenac sodium 1 % Gel
1 ea TOPICAL BIDPRN PRN (Reason: left arm)
fentanyl 25 mcg/hr Patch 72 Hour
1 patch TRANSDERMAL Q72H
Discontinued
sennosides [senna] 8.6 mg Tablet
8.6 mg PO HS
Discharge Orders:
Discharge Patient (As Directed); Ordered 12/14/23
Ordered By: Darion Menjivar
Discharge Date and Time
Discharge Date/Time: 12/14/23 16:36
Print Language: HONG KONGER
--- NOTE | 2023-12-14 15:10 | CM ---
corporate logistics manager reviewed patient's chart and spoke with patient and plan is to home with visiting nurses, [facility] has had [facility] in past, referral sent.
Plan; Home with [facility].
[phone]
[2023-12-14 15:27] VITALS: BP 117/76
== END 2023-12-14 16:36 | disposition home health service (06) | DRG 542 ==
LOC: 4 WEST ACU 07:55
PROVIDERS: Physician Assistant; Physician Assistant Medical; Radiology Vascular & Interventional Radiology; ADMITTING PHYSICIAN Hospitalist; CONSULT PHYSICIAN Internal Medicine Infectious Disease; EMERGENCY PHYSICIAN Student in an Organized Health Care Education/Training Program; FAMILY PHYSICIAN Physician Assistant
PROC: 0W9J30Z Drainage of Pelvic Cavity with Drainage Device, Percutaneous Approach (ICD-10-PCS; 2023-12-12)
DX: M84.522A Pathological fracture in neoplastic disease, left humerus, initial encounter for fracture (principal); K65.1 Peritoneal abscess; C18.7 Malignant neoplasm of sigmoid colon; C78.7 Secondary malignant neoplasm of liver and intrahepatic bile duct; C79.51 Secondary malignant neoplasm of bone; C79.71 Secondary malignant neoplasm of right adrenal gland; F11.20 Opioid dependence, uncomplicated; E22.2 Syndrome of inappropriate secretion of antidiuretic hormone; D63.0 Anemia in neoplastic disease; E88.09 Other disorders of plasma-protein metabolism, not elsewhere classified; K21.9 Gastro-esophageal reflux disease without esophagitis; D72.828 Other elevated white blood cell count; G89.29 Other chronic pain; W19.XXXA Unspecified fall, initial encounter; Z79.2 Long term (current) use of antibiotics; Z79.899 Other long term (current) drug therapy; Z90.49 Acquired absence of other specified parts of digestive tract; Z87.891 Personal history of nicotine dependence; Z86.711 Personal history of pulmonary embolism; Z88.1 Allergy status to other antibiotic agents
CPT/HCPCS: 29125; 49406; 71046; 73060; 74160; 80048; 80053; 82533; 83735; 83930; 83935; 84300; 84443; 85014; 85018; 85025; 85027; 85610; 85730; 86850; 86900; 86901; 86920; 87070; 87077; 87186; 87205; 96374; 97167; 97535; 99152; 99284; J2997; P9016; Q9967